=== PATIENT | female | born 1975 | race Hispanic/Latino ===

== ENCOUNTER 2018-01-30 23:00 | Emergency (ER) | payer SELFPAY ==
[2018-01-30] MEDS ORDERED: KETOROLAC 30 MG/ML INJ ONE (23:55)
[2018-01-30] MEDS ORDERED: PANTOPRAZOLE 40 MG INJ ONE (23:55)
[2018-01-30] MEDS ORDERED: PROMETHAZINE 25 MG/ML VIAL ONE (23:55)
[2018-01-30] MEDS ORDERED: NA CHLORIDE 0.9% 1,000 ML ONE (23:56)
[2018-01-31 00:15] LABS: Potassium 3.8 mEq/L (3.6-5.0)
[2018-01-31 00:16] LABS: Absolute Lymphocytes (CBC) 1.8 K/uL (0.7-4.9); Absolute Monocytes 0.5 K/uL (0.1-1.3); Absolute Neutrophil 8.8 K/uL (1.8-8.0); Basophils % 0.7 % (0-1.3); Eosinophils % 0.7 % (0-4.4); Hematocrit 44.1 % (36.0-45.0); Lymphocytes % 15.9 % (15.3-44.8); MCH 29.3 pg (27.0-35.0); MCV 87.4 fL (80-100); Monocytes % 4.6 % (3.3-12.3); RBC Red Blood Cell Count 5.04 M/uL (3.86-4.86)
[2018-01-31 00:22] LABS: Albumin 3.8 g/dL (3.2-5.5); Bilirubin Direct 0.2 mg/dL (0-0.2); Bilirubin Total 0.8 mg/dL (0.3-1.2); Protein, Total 7.5 g/dL (6.0-8.3)
--- NOTE | 2018-01-31 01:20 | EDPHYS ---
Physician Documentation [facility] Name: Kayla Dawkins Age: 42 yrs Sex: Female : 1975 Arrival Date: 01/30/2018 Time: 23:04 Bed 14 Private MD: ED Physician Mushtaq Pack HPI: 01/31 00:54 This 42 yrs old Female presents to ER via Wheelchair with complaints of snw Abdominal Pain, Nausea, Anxiety. 00:54 The patient presents with abdominal pain in the epigastric area. Onset: The snw symptoms/episode began/occurred suddenly, 3 day(s) ago, and became worse. The symptoms do not radiate. Associated signs and symptoms: Pertinent positives: nausea, vomiting, and diarrhea. The symptoms are described as achy, burning. Severity of pain: At its worst the pain was moderate. The patient has not experienced similar symptoms in the past. yes, just saw Dr. Reyes this week and got back on medications. . Just got back on Metformin, may be source of diarrhea. 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 bs1 Historical: - Allergies: 23:31 No Known Allergies; bs1 - Home Meds: 23:31 amlodipine 10 mg tab 1 tab once daily [Active]; gabapentin 300 mg Oral cap 1 cap bs1 nightly [Active]; metformin 1,000 mg Oral tab 1 tab 2 times per day [Active]; metoprolol tartrate 100 mg Oral tab 1 tab 2 times per day [Active]; losartan-hydrochlorothiazide 100-25 mg Oral tab 1 tab once daily [Active]; glipizide 5 mg Oral tab 1 tab once daily [Active]; Tramadol Oral [Active]; Cymbalta oral oral [Active]; Fish Oil [place] 3-6-9 300-1,000 mg Oral cpDR daily [Active]; - PMHx: 23:31 Diabetes - NIDDM; Hypertension; neuropathy; shoulder pain; Hepatitis; bs1 - PSHx: 23:31 None; bs1 - Immunization history:: Adult Immunizations up to date. - Social history:: Smoking status: Patient/guardian denies using tobacco. ROS: 01/31 00:52 Constitutional: Negative for fever, chills, and weight loss, Eyes: Negative for injury, snw pain, redness, and discharge, ENT: Negative for injury, pain, and discharge, Neck: Negative for injury, pain, and swelling, Cardiovascular: Negative for chest pain, palpitations, and edema, Respiratory: Negative for shortness of breath, cough, wheezing, and pleuritic chest pain, Back: Negative for injury and pain, : Negative for injury, bleeding, discharge, and swelling, MS/Extremity: Negative for injury and deformity, Skin: Negative for injury, rash, and discoloration, Neuro: Negative for headache, weakness, numbness, tingling, and seizure. Abdomen/GI: Positive for abdominal pain, nausea, vomiting, and diarrhea. Exam: 01/30 23:58 Constitutional: This is a well developed, well nourished patient who is awake, alert, snw and in no acute distress. Head/Face: Normocephalic, atraumatic. Eyes: Pupils equal round and reactive to light, extra-ocular motions intact. Lids and lashes normal. Conjunctiva and sclera are non-icteric and not injected. Cornea within normal limits. Periorbital areas with no swelling, redness, or edema. ENT: Nares patent. No nasal discharge, no septal abnormalities noted. Tympanic membranes are normal and external auditory canals are clear. Oropharynx with no redness, swelling, or masses, exudates, or evidence of obstruction, uvula midline. Mucous membranes moist. Neck: Trachea midline, no thyromegaly or masses palpated, and no cervical lymphadenopathy. Supple, full range of motion without nuchal rigidity, or vertebral point tenderness. No Meningismus. Chest/axilla: Normal chest wall appearance and motion. Nontender with no deformity. No lesions are appreciated. Cardiovascular: Regular rate and rhythm with a normal S1 and S2. No gallops, murmurs, or rubs. Normal PMI, no JVD. No pulse deficits. Respiratory: Lungs have equal breath sounds bilaterally, clear to auscultation and percussion. No rales, rhonchi or wheezes noted. No increased work of breathing, no retractions or nasal flaring. Back: No spinal tenderness. No costovertebral tenderness. Full range of motion. Skin: Warm, dry with normal turgor. Normal color with no rashes, no lesions, and no evidence of cellulitis. MS/ Extremity: Pulses equal, no cyanosis. Neurovascular intact. Full, normal range of motion. Neuro: Awake and alert, GCS 15, oriented to person, place, time, and situation. Cranial nerves II-XII grossly intact. Motor strength 5/5 in all extremities. Sensory grossly intact. Cerebellar exam normal. Normal gait. Abdomen/GI: Inspection: abdomen appears normal, Bowel sounds: normal, Palpation: moderate abdominal tenderness, in all quadrants. Vital Signs: 23:31 BP 105 / 73; Pulse 73; Resp 16 S; Temp 98.0(O); Pulse Ox 96% on R/A; Weight 95.25 kg; bs1 Height 5 ft. 6 in. (167.64 cm); Pain 9/10; 23:45 BP 110 / 78; Pulse 63; Resp 16 S; Pulse Ox 98% on R/A; bs1 01/31 01:25 BP 107 / 68; Pulse 72; Resp 15; Temp 98.0(O); Pulse Ox 100% on R/A; Pain 5/10; bs1 01/30 23:31 Body Mass Index 33.89 (95.25 kg, 167.64 cm) bs1 MDM: 01/30 23:15 Patient medically screened. snw 01/31 00:01 Data reviewed: vital signs, nurses notes. 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 snw 01:20 Counseling: I had a detailed discussion with the patient and/or guardian regarding: the snw historical points, exam findings, and any diagnostic results supporting the discharge/admit diagnosis, lab results, the need for outpatient follow up, to return to the emergency department if symptoms worsen or persist or if there are any questions or concerns that arise at home. Special discussion: Based on the patient's Hx, exam, and Dx evaluation, there is no indication for emergent surgery or inpatient Tx. It is understood by the patient/guardian that if the Sx's persist or worsen they need to return immediately for re-evaluation. Based on the history and exam findings, there is no indication for further emergent testing or inpatient evaluation. I discussed with the patient/guardian the need to see the primary care provider for further evaluation of the symptoms. 01/30 23:41 Order name: Amylase, Serum; Complete Time: 00:24 snw 01/30 23:41 Order name: Basic Metabolic Panel; Complete Time: 00:24 snw 01/30 23:41 Order name: CBC with Diff; Complete Time: 00:24 snw 01/30 23:41 Order name: Creatinine for Radiology; Complete Time: 00:17 snw 01/30 23:41 Order name: Hepatic Function; Complete Time: 00:24 snw 01/30 23:41 Order name: Lipase; Complete Time: 00:24 snw 01/30 23:41 Order name: Urine Test (obtain specimen); Complete Time: 01:06 snw 01/30 23:41 Order name: Urine Microscopic Only 01/31 01:11 Order name: Urine Dipstick--Ancillary (enter results) 01/31 01:11 Order name: Urine --Ancillary (enter results) 01/30 23:41 Order name: IV Saline Lock; Complete Time: 00:43 snw 01/30 23:41 Order name: Labs collected and sent; Complete Time: 00:43 snw 01/30 23:41 Order name: Urine Dipstick-Ancillary (obtain specimen); Complete Time: 01:06 snw Administered Medications: 00:07 Drug: Phenergan 12.5 mg Route: IVP; Site: right forearm; bs1 00:43 Follow up: Response: No adverse reaction bs1 00:08 Drug: NS 0.9% 1000 ml Route: IV; Rate: 1 bolus; Site: right forearm; bs1 01:55 Follow up: IV Status: Completed infusion bs1 00:08 Drug: TORadol 30 mg Route: IVP; Site: right forearm; bs1 00:43 Follow up: Response: No adverse reaction bs1 00:08 Drug: ProTONIX 40 mg Route: IVP; Site: right forearm; bs1 00:43 Follow up: Response: No adverse reaction bs1 Disposition: 03:43 Co-signature as Attending Physician, Mushtaq Pack MD. ma2 Disposition: 01/31/18 01:19 Discharged to Home. Impression: Vomiting, unspecified, Diarrhea, unspecified. - Condition is Stable. - Discharge Instructions: Food Choices to Help Relieve Diarrhea, Adult, Diarrhea, Clear Liquid Diet, Nausea and Vomiting, Rehydration, Adult. - Prescriptions for Bentyl 20 mg Oral Tablet - take 1 tablet by ORAL route every 6 hours As needed; 20 tablet. Zofran 4 mg Oral Tablet - take 1 tablet by ORAL route every 12 hours As needed; 20 tablet. - Work release form, Medication Reconciliation Form, Thank You Letter, Antibiotic Education, Prescription Opioid Use form. - Follow up: Private Physician; When: 2 - 3 days; Reason: Recheck today's complaints, Continuance of care, Re-evaluation by your physician. Follow up: Emergency Department; When: As needed; Reason: Worsening of condition. Signatures: Dispatcher [employer] EDMS Mayela Viera, EHSAN-C COAT PRESSER-Csnw mAarilys Power, RN RN bs1 Mushtaq Pack MD MD ma2 Corrections: (The following items were deleted from the chart) 01:55 01:19 01/31/2018 01:19 Discharged to Home. Impression: Vomiting, unspecified; Diarrhea, bs1 unspecified. Condition is Stable. Discharge Instructions: Food Choices to Help Relieve Diarrhea, Adult, Diarrhea, Clear Liquid Diet, Nausea and Vomiting, Rehydration, Adult. Prescriptions for Bentyl 20 mg Oral Tablet - take 1 tablet by ORAL route every 6 hours As needed; 20 tablet, Zofran 4 mg Oral Tablet - take 1 tablet by ORAL route every 12 hours As needed; 20 tablet. and Forms are Work release form, Medication Reconciliation Form, Thank You Letter, Antibiotic Education, Prescription Opioid Use. Follow up: Private Physician; When: 2 - 3 days; Reason: Recheck today's complaints, Continuance of care, Re-evaluation by your physician. Follow up: Emergency Department; When: As needed; Reason: Worsening of condition. snw
--- NOTE | 2018-01-31 01:20 | ER ---
Nurse's Notes [facility] Name: Kayla Dawkins Age: 42 yrs Sex: Female : 1975 Arrival Date: 01/30/2018 Time: 23:04 Bed 14 Private MD: Diagnosis: Vomiting, unspecified;Diarrhea, unspecified Presentation: 01/30 23:24 Presenting complaint: Patient states: "Dori been having abdominal pain for 2 days, just bs1 got worse, I thought it was a stomach bug, it hurts in my right/left upper abdomen and it goes down to my belly button.". Transition of care: patient was not received from another setting of care. Onset of symptoms was January 28, 2018. Initial Sepsis Screen: Does the patient meet any 2 criteria? No. Patient's initial sepsis screen is negative. Does the patient have a suspected source of infection? No. Patient's initial sepsis screen is negative. Care prior to arrival: None. 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 bs1 Historical: - Allergies: 23:31 No Known Allergies; bs1 - Home Meds: 23:31 amlodipine 10 mg tab 1 tab once daily [Active]; gabapentin 300 mg Oral cap 1 cap bs1 nightly [Active]; metformin 1,000 mg Oral tab 1 tab 2 times per day [Active]; metoprolol tartrate 100 mg Oral tab 1 tab 2 times per day [Active]; losartan-hydrochlorothiazide 100-25 mg Oral tab 1 tab once daily [Active]; glipizide 5 mg Oral tab 1 tab once daily [Active]; Tramadol Oral [Active]; Cymbalta oral oral [Active]; Fish Oil [place] 3-6-9 300-1,000 mg Oral cpDR daily [Active]; - PMHx: 23:31 Diabetes - NIDDM; Hypertension; neuropathy; shoulder pain; Hepatitis; bs1 - PSHx: 23:31 None; bs1 - Immunization history:: Adult Immunizations up to date. - Social history:: Smoking status: Patient/guardian denies using tobacco. Screenin:32 Abuse screen: Denies threats or abuse. Denies injuries from another. Nutritional bs1 screening: No deficits noted. Tuberculosis screening: No symptoms or risk factors identified. Fall Risk None identified. Assessment: 23:38 General: Appears in no apparent distress. uncomfortable, Behavior is cooperative, bs1 anxious. Pain: Complains of pain in right/left upper abdomen Pain radiates to right/left flank Pain currently is 9 out of 10 on a pain scale. Quality of pain is described as sharp. Neuro: Level of Consciousness is awake, alert, obeys commands, Oriented to person, place, time, situation, Appropriate for age Printing Bindery Assistant are equal bilaterally. Cardiovascular: Denies chest pain, shortness of breath, Heart tones S1 S2 present Capillary refill < 3 seconds Patient's skin is warm and dry. Respiratory: Airway is patent Trachea midline Respiratory effort is even, unlabored, Respiratory pattern is regular, symmetrical, Breath sounds are clear bilaterally. GI: Abdomen is round Bowel sounds present X 4 quads. Abdomen is tender to palpation in epigastric area, umbilical area, right upper quadrant and left upper quadrant Guarding noted Reports upper abdominal pain, diarrhea, nausea, Patient currently denies bloody stool, rectal bleeding, vomiting. : Denies burning with urination, inability to void, urinary frequency. EENT: No deficits noted. No signs and/or symptoms were reported regarding the EENT system. Derm: Skin is intact, Skin is pink, warm \\T\\ dry. Musculoskeletal: Circulation, motion, and sensation intact. Capillary refill < 3 seconds, Range of motion: intact in all extremities. 01/31 00:30 Reassessment: No changes from previously documented assessment. Patient and/or family bs1 updated on plan of care and expected duration. Pain level reassessed. Patient is alert, oriented x 3, equal unlabored respirations, skin warm/dry/pink. 01:51 Reassessment: Patient appears in no apparent distress at this time. Patient and/or bs1 family updated on plan of care and expected duration. Pain level reassessed. Patient is alert, oriented x 3, equal unlabored respirations, skin warm/dry/pink. Patient states feeling better. Vital Signs: 01/30 23:31 BP 105 / 73; Pulse 73; Resp 16 S; Temp 98.0(O); Pulse Ox 96% on R/A; Weight 95.25 kg; bs1 Height 5 ft. 6 in. (167.64 cm); Pain 9/10; 23:45 BP 110 / 78; Pulse 63; Resp 16 S; Pulse Ox 98% on R/A; bs1 01/31 01:25 BP 107 / 68; Pulse 72; Resp 15; Temp 98.0(O); Pulse Ox 100% on R/A; Pain 5/10; bs1 01/30 23:31 Body Mass Index 33.89 (95.25 kg, 167.64 cm) bs1 ED Course: 01/30 23:04 Patient arrived in ED. al2 23:13 [facility] snw 23:13 Mushtaq Pack MD is Attending Physician. snw 23:27 Triage completed. bs1 23:32 Patient has correct armband on for positive identification. Bed in low position. Call bs1 light in reach. Side rails up X 1. Pulse ox on. NIBP on. 23:38 Amarilys Power, RN is Primary Nurse. bs1 23:50 Inserted saline lock: 22 gauge in right forearm, using aseptic technique. bs1 23:55 Arm band placed on placed. bs1 01/31 01:52 No provider procedures requiring assistance completed. bs1 01:54 IV discontinued, bleeding controlled, No redness/swelling at site. Pressure dressing bs1 applied. Administered Medications: 00:07 Drug: Phenergan 12.5 mg Route: IVP; Site: right forearm; bs1 00:43 Follow up: Response: No adverse reaction bs1 00:08 Drug: NS 0.9% 1000 ml Route: IV; Rate: 1 bolus; Site: right forearm; bs1 01:55 Follow up: IV Status: Completed infusion bs1 00:08 Drug: TORadol 30 mg Route: IVP; Site: right forearm; bs1 00:43 Follow up: Response: No adverse reaction bs1 00:08 Drug: ProTONIX 40 mg Route: IVP; Site: right forearm; bs1 00:43 Follow up: Response: No adverse reaction bs1 Outcome: 01:19 Discharge ordered by . snw 01:53 Discharged to home ambulatory. bs1 01:53 Condition: stable 01:53 Discharge instructions given to patient, Instructed on discharge instructions, follow up and referral plans. medication usage, Demonstrated understanding of instructions, follow-up care, medications, Prescriptions given X 2. 01:55 Patient left the ED. bs1 Signatures: Mayela Viera, EDUCATION PROFESSOR-C EDUCATION PROFESSOR-Csnw Amarilys Power RN RN bs1 Patrizia Ellis Corrections: (The following items were deleted from the chart) 01:19 01/30 23:45 BP 110 / 78; Pulse 63bpm; Resp 6bpm; Pulse Ox 98% RA; bs1 bs1 01/31 01:55 01/30 20:55 Arm band placed on placed. bs1 bs1
[2018-01-31 01:41] LABS: Urine Bacteria <20 /HPF (<20); Urine Culture Reflex Order NOT NEEDED; Urine RBC NONE SEEN /HPF (NONE SEEN)
[2018-01-31 01:41] LABS: Urine Blood 2+ (NEG); Urine Glucose NEGATIVE (NEG); Urine Protein 1+ (NEG); Urine Specific Gravity >1.030 (1.005-1.030); Urine pH 5.5 (5.0-7.0)
[2018-01-31 01:59] VITALS: TEMP 98
[2018-01-31 02:02] VITALS: BP 107/68; O2SAT 100
== END 2018-01-31 01:55 | disposition home or self-care (01) ==
LOC: ER 23:00
DX: R19.7 Diarrhea, unspecified (principal); I10 Essential (primary) hypertension; E11.9 Type 2 diabetes mellitus without complications
CPT/HCPCS: 36415; 80048; 80076; 81003; 81015; 81025; 82150; 83690; 85025; 96361; 96374; 96375; 99284; C9113; J2550; J7030

== ENCOUNTER 2020-04-05 00:28 | Emergency (ER) | payer OTHER ==
[2020-04-05 02:09] LABS: Urine Blood NEGATIVE (NEG); Urine Glucose 2+ (NEG); Urine Protein 1+ (NEG); Urine Specific Gravity >1.030 (1.005-1.030)
[2020-04-05 02:13] LABS: Basophils % 1.5 % (0-1.3); Hematocrit 39.6 % (36.0-45.0); MPV 8.8 fL (7.6-11.3); RBC Red Blood Cell Count 4.83 M/uL (3.86-4.86)
[2020-04-05 02:31] LABS: ALT/SGPT 47 U/L (12-78); AST/SGOT 30 U/L (15-37); Albumin 3.7 g/dL (3.4-5.0); Alkaline Phosphatase 86 U/L (45-117); BUN Blood Urea Nitrogen 17 mg/dL (7-18); Bicarbonate 29 mmol/L (21-32); Bilirubin Direct < 0.1 mg/dL (0-0.2); Bilirubin Total 0.2 mg/dL (0.2-1.0); Glucose Level 199 mg/dL (74-106); Potassium 4.2 mmol/L (3.5-5.1); Protein, Total 8.4 g/dL (6.4-8.2); Sodium Level 138 mmol/L (136-145)
--- NOTE | 2020-04-05 06:17 | EDPHYS ---
Physician Documentation [facility] Name: Kayla Dawkins Age: 44 yrs Sex: Female : 1975 Arrival Date: 04/05/2020 Time: 00:30 Bed 8 Private MD: ED Physician Delmer Shah HPI: 04/05 01:48 This 44 yrs old Female presents to ER via Ambulatory with complaints of Mouth mh7 Swollen. 01:48 The patient presents with pain, swelling. The problem is located in the mouth. mh7 01:49 Onset: The symptoms/episode began/occurred 2 day(s) ago. Duration: The symptoms are mh7 continuous, and are unchanged since they started. Modifying factors: The symptoms are alleviated by nothing, the symptoms are aggravated by nothing. Associated signs and symptoms: Pertinent negatives: anorexia, chills, dysphagia, fever, inability to eat, nausea, redness in area, vomiting. Severity of symptoms: At their worst the symptoms were moderate, yesterday, in the emergency department the symptoms have improved, mildly. Patient that she has had mouth pain and swelling since seeing her dentist 3 days ago. States that she was told that she needed some teeth removed and was started on peniciliin.. 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 - Social history:: Smoking status: Patient/guardian denies using. ROS: 01:49 Constitutional: Negative for fever, chills, and weight loss, Eyes: Negative for injury, mh7 pain, redness, and discharge, Neck: Negative for injury, pain, and swelling, Cardiovascular: Negative for chest pain, palpitations, and edema, Respiratory: Negative for shortness of breath, cough, wheezing, and pleuritic chest pain, Abdomen/GI: Negative for abdominal pain, nausea, vomiting, diarrhea, and constipation, Back: Negative for injury and pain, : Negative for injury, bleeding, discharge, and swelling, MS/Extremity: Negative for injury and deformity, Skin: Negative for injury, rash, and discoloration, Neuro: Negative for headache, weakness, numbness, tingling, and seizure, Psych: Negative for depression, anxiety, suicide ideation, homicidal ideation, and hallucinations, Allergy/Immunology: Negative for hives, rash, and allergies, Endocrine: Negative for neck swelling, polydipsia, polyuria, polyphagia, and marked weight changes, Hematologic/Lymphatic: Negative for swollen nodes, abnormal bleeding, and unusual bruising. Exam: 01:49 Constitutional: This is a well developed, well nourished patient who is awake, alert, mh7 and in no acute distress. 01:49 Eyes: Pupils equal round and reactive to light, extra-ocular motions intact. Lids and lashes normal. Conjunctiva and sclera are non-icteric and not injected. Cornea within normal limits. Periorbital areas with no swelling, redness, or edema. 01:49 Neck: Trachea midline, no thyromegaly or masses palpated, and no cervical lymphadenopathy. Supple, full range of motion without nuchal rigidity, or vertebral point tenderness. No Meningismus. Chest/axilla: Normal chest wall appearance and motion. Nontender with no deformity. No lesions are appreciated. Cardiovascular: Regular rate and rhythm with a normal S1 and S2. No gallops, murmurs, or rubs. Normal PMI, no JVD. No pulse deficits. Respiratory: Lungs have equal breath sounds bilaterally, clear to auscultation and percussion. No rales, rhonchi or wheezes noted. No increased work of breathing, no retractions or nasal flaring. Abdomen/GI: Soft, non-tender, with normal bowel sounds. No distension or tympany. No guarding or rebound. No evidence of tenderness throughout. Back: No spinal tenderness. No costovertebral tenderness. Full range of motion. Skin: Warm, dry with normal turgor. Normal color with no rashes, no lesions, and no evidence of cellulitis. MS/ Extremity: Pulses equal, no cyanosis. Neurovascular intact. Full, normal range of motion. Neuro: Awake and alert, GCS 15, oriented to person, place, time, and situation. Cranial nerves II-XII grossly intact. Motor strength 5/5 in all extremities. Sensory grossly intact. Cerebellar exam normal. Normal gait. Psych: Awake, alert, with orientation to person, place and time. Behavior, mood, and affect are within normal limits. 01:49 Head/face: Noted is swelling, that is mild, of the left cheek, tenderness, that is mild, of the left cheek. 01:49 ENT: External ear(s): are unremarkable, Nose: is normal, Mouth: Lips: normal, Oral mucosa: normal, Gums: normal with healthy appearance, Tongue: is normal, abscess, is not appreciated, drooling, is not appreciated, Posterior pharynx: is normal, Dental exam: dental caries, that is mild, specifically in the upper left third molar (#16) and lower left first molar (#19), Voice: is normal. Vital Signs: 01:28 BP 161 / 91; Pulse 89; Resp 18; Temp 98.5; Pulse Ox 100% ; Weight 122.47 kg; Height 5 wh ft. 6 in. (167.64 cm); Pain 2/10; 02:37 BP 144 / 78; Pulse 84; Resp 18; Pulse Ox 100% on R/A; wh 04:00 BP 146 / 88; Pulse 77; Resp 18; Pulse Ox 100% on R/A; wh 06:00 BP 148 / 82; Pulse 84; Pulse Ox 100% on R/A; wh 01:28 Body Mass Index 43.58 (122.47 kg, 167.64 cm) MDM: 01:44 Patient medically screened. [facility] 06:14 Differential diagnosis: dental caries, gingivitis, dental abscess, aphthous ulcers, 7 acute necrotizing ulcerative gingivitis, gingivostomatitis. Data reviewed: vital signs, nurses notes, lab test result(s), CBC, electrolytes, radiologic studies, CT scan. Data interpreted: Pulse oximetry: on room air is 100 %. Interpretation: normal. Counseling: I had a detailed discussion with the patient and/or guardian regarding: the historical points, exam findings, and any diagnostic results supporting the discharge/admit diagnosis, the presence of at least one elevated blood pressure reading (>120/80) during this emergency department visit, lab results, radiology results, the need for outpatient follow up, to return to the emergency department if symptoms worsen or persist or if there are any questions or concerns that arise at home. Response to treatment: the patient's symptoms have markedly improved after treatment. 04/05 01:47 Order name: CBC with Diff; Complete Time: 02:41 [facility] 04/05 01:47 Order name: Basic Metabolic Panel; Complete Time: 02:41 [facility] 04/05 01:47 Order name: LFT's; Complete Time: 02:41 [facility] 04/05 02:07 Order name: Urine Dipstick--Ancillary (enter results); Complete Time: 02:41 [facility] 04/05 02:07 Order name: Urine --Ancillary (enter results); Complete Time: 02:41 [facility] 04/05 02:43 Order name: CT Maxillofacial W/cont [facility] 04/05 01:47 Order name: Urine Dipstick-Ancillary (obtain specimen); Complete Time: 02:05 [facility] 04/05 01:47 Order name: Urine Test (obtain specimen); Complete Time: 02:05 [facility] 04/05 01:47 Order name: Saline Lock; Complete Time: 02:05 [facility] Administered Medications: No medications were administered Disposition: 04/05/20 06:17 Discharged to Home. Impression: Dental caries, Facial Pain. - Condition is Stable. - Discharge Instructions: Dental Caries, [id number]. - Work release form, Medication Reconciliation Form, Thank You Letter, Antibiotic Education, Prescription Opioid Use form. - Follow up: Private Physician; When: 1 - 2 days; Reason: Worsening of condition, Recheck today's complaints, Continuance of care, Re-evaluation by your physician. Follow up: Fer Tierney DDS; When: 1 - 2 days; Reason: Worsening of condition, Recheck today's complaints. - Problem is an ongoing problem. - Symptoms have improved. Signatures: Dispatcher [employer] EDInocencio Zarate Maurice, MD MD mh7 Corrections: (The following items were deleted from the chart) 06:33 06:17 04/05/2020 06:17 Discharged to Home. Impression: Dental caries; Facial Pain. Condition is Stable. Forms are Medication Reconciliation Form, Thank You Letter, Antibiotic Education, Prescription Opioid Use. Follow up: Private Physician; When: 1 - 2 days; Reason: Worsening of condition, Recheck today's complaints, Continuance of care, Re-evaluation by your physician. Follow up: Fer Tierney; When: 1 - 2 days; Reason: Worsening of condition, Recheck today's complaints. Problem is an ongoing problem. Symptoms have improved. 7
--- NOTE | 2020-04-05 06:17 | ER ---
Nurse's Notes [facility] Name: Kayla Dawkins Age: 44 yrs Sex: Female : 1975 Arrival Date: 04/05/2020 Time: 00:30 Bed 8 Private MD: Diagnosis: Dental caries;Facial Pain Presentation: 04/05 01:28 Chief complaint: Patient states: was seen by Dentist last Wednesday and was prescribed Abx and Tramadol. Pt stated pain medication wasn't working and she felt her toungue was also swollen. Pain radiates to head and neck. Coronavirus screen: Proceed with normal triage. Patient denies a cough. Patient denies shortness of breath or difficulty breathing. Patient denies measured and/or subjective temperature greater than 100.4F prior to today's visit. Patient denies travel on a cruise ship or to a country the [facility] currently lists as an affected area. Patient reports contact with known and/or suspected case of COVID-19. Ebola Screen: Patient negative for fever greater than or equal to 101.5 degrees Fahrenheit, and additional compatible Ebola Virus Disease symptoms Patient denies exposure to infectious person. Initial Sepsis Screen: Does the patient meet any 2 criteria? No. Patient's initial sepsis screen is negative. Does the patient have a suspected source of infection? Yes: Other: Cavities. Risk Assessment: Do you want to hurt yourself or someone else? Patient reports no desire to harm self or others. Onset of symptoms was April 05, 2020. 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 - Social history:: Smoking status: Patient/guardian denies using. Screenin:34 Abuse screen: Denies threats or abuse. Denies injuries from another. Nutritional screening: No deficits noted. Tuberculosis screening: No symptoms or risk factors identified. Fall Risk None identified. Assessment: :32 General: Appears in no apparent distress. Behavior is calm, cooperative, appropriate for age. Pain: Complains of pain in mouth Pain radiates to head and neck Pain currently is 2 out of 10 on a pain scale. Quality of pain is described as aching, Pain began 2-3 days ago. Neuro: Level of Consciousness is awake, alert, obeys commands, Oriented to person, place, time, situation, Appropriate for age. Cardiovascular: Capillary refill < 3 seconds. Respiratory: Airway is patent Respiratory effort is even, unlabored, Respiratory pattern is regular, symmetrical. GI: Abdomen is flat, non-distended. : No signs and/or symptoms were reported regarding the genitourinary system. EENT: Derm: Skin is intact, is healthy with good turgor, Skin is pink, warm \T\ dry. normal. Musculoskeletal: Circulation, motion, and sensation intact. 02:37 Reassessment: Patient appears in no apparent distress at this time. No changes from previously documented assessment. Patient and/or family updated on plan of care and expected duration. Pain level reassessed. Patient is alert, oriented x 3, equal unlabored respirations, skin warm/dry/pink. 04:15 Reassessment: Patient appears in no apparent distress at this time. No changes from previously documented assessment. Patient and/or family updated on plan of care and expected duration. Pain level reassessed. Patient is alert, oriented x 3, equal unlabored respirations, skin warm/dry/pink. 06:00 Reassessment: Patient appears in no apparent distress at this time. No changes from previously documented assessment. Patient and/or family updated on plan of care and expected duration. Pain level reassessed. Patient is alert, oriented x 3, equal unlabored respirations, skin warm/dry/pink. Vital Signs: 01:28 BP 161 / 91; Pulse 89; Resp 18; Temp 98.5; Pulse Ox 100% ; Weight 122.47 kg; Height 5 ft. 6 in. (167.64 cm); Pain 2/10; 02:37 BP 144 / 78; Pulse 84; Resp 18; Pulse Ox 100% on R/A; 04:00 BP 146 / 88; Pulse 77; Resp 18; Pulse Ox 100% on R/A; 06:00 BP 148 / 82; Pulse 84; Pulse Ox 100% on R/A; 01:28 Body Mass Index 43.58 (122.47 kg, 167.64 cm) ED Course: 00:30 Patient arrived in ED. cl3 01:20 Delmer Shah MD is Attending Physician. mh7 01:21 Inocencio Awad is Primary Nurse. 01:31 Triage completed. 01:34 Arm band placed on right wrist. 01:34 Patient has correct armband on for positive identification. Bed in low position. Call light in reach. Side rails up X 1. Pulse ox on. NIBP on. 02:30 Inserted saline lock: 20 gauge in right antecubital area, using aseptic technique. 04:49 CT Maxillofacial W/cont In Process Unspecified. EDMS 06:16 Fer Tierney DDS is Referral Physician. 7 06:32 No provider procedures requiring assistance completed. IV discontinued, intact, bleeding controlled, No redness/swelling at site. Administered Medications: No medications were administered Outcome: 06:17 Discharge ordered by . 7 06:33 Discharged to home ambulatory. 06:33 Condition: stable 06:33 Discharge instructions given to patient, Instructed on discharge instructions, follow up and referral plans. POC Demonstrated understanding of instructions, follow-up care, POC 06:33 Patient left the ED. Signatures: Dispatcher [employer] EDOH Inocencio Awad Dayron Patten cl3 Delmer Shah MD MD [facility] Corrections: (The following items were deleted from the chart) 06:23 01:28 BP 161 / 91; Pulse 89bpm; Resp 18bpm; Pulse Ox 100%; Temp 98.5F; 122.47 kg; wh Height 5 ft. 6 in.; BMI: 43.5; Pain 8/10; wh 06:24 01:32 Pain: Complains of pain in mouth Pain radiates to head and neck Pain currently is 8 out of 10 on a pain scale. Quality of pain is described as aching, Pain began 2-3 days ago.
[2020-04-05 06:42] VITALS: TEMP 98.5; O2SAT 100
[2020-04-05 06:45] VITALS: BP 148/82
--- NOTE | 2020-04-05 19:28 | RAD REPORT ---
EXAM DESCRIPTION: Maxillofacial W/Cont CLINICAL HISTORY: SWELLING COMPARISON: None. TECHNIQUE: CT MAXILLOFACIAL WITH IV CONTRAST on 04/05/2020 2:43 AM CDT This exam was performed according to our departmental dose-optimization program, which includes autom ated exposure control, adjustment of the mA and/or kV according to patient size and/or use of iterati ve reconstruction technique. FINDINGS: There is no acute fracture. The paranasal sinuses are clear. Orbits and globes are unremar kable. Mastoid air cells are clear. Temporomandibular joints are intact. There are no significant sof t tissue abnormalities. IMPRESSION: No post-traumatic findings. Electronically signed by: Edy Basilio MD 04/05/2020 5:07 AM CDT Due to temporary technical issues with the PACS/Fluency reporting system, reports are being signed by the in house radiologist without review as a courtesy to ensure prompt reporting. The interpreting r adiologist is fully responsible for the content of the report.
== END 2020-04-05 06:33 | disposition home or self-care (01) ==
LOC: ER 00:28
DX: K02.9 Dental caries, unspecified (principal); R51 Headache
CPT/HCPCS: 85025; 80048; 36415; 81025; 80076; 81003; 70487; 99284; Q9967

== ENCOUNTER 2020-06-23 17:11 | Emergency (ER) | payer OTHER ==
[2012-06-10 17:57] VITALS: BP 128/74
--- OUTSIDE RECORDS SUMMARY | 2020-06-23 17:13 | XMS REPORT | Continuity of Care Document ---
:1975 Author Organization [facility] t Address [address] [place] [address] Care Team Providers Name Role Phone Frankie AKERS Attending Clinician Problems This patient has no known problems. Allergies, Adverse Reactions, Alerts This patient has no known allergies or adverse reactions. Medications This patient has no known medications. Procedures This patient has no known procedures. Encounters Start End Encounter Admission Attending Care Care Encounter Source Date/Time Date/Time Type Type Clinicians Facility Department ID 2020-06-07 2020-06-07 Telephone Frankie [facility] [id number] 00:00:00 00:00:00 Sanjuanita [facility] [id number] [facility] [id number] [facility] [id number] [facility] 2020-06-05 2020-06-05 Office Frankie [facility] [id number] 10:00:00 10:30:00 Visit Sanjuanita Cumbola [id number] Har[place] [id number] Professjose [id number] [address]al [address] Building Results This patient has no known results.
--- OUTSIDE RECORDS SUMMARY | 2020-06-23 17:14 | XMS REPORT | Summary of Care ---
:1975 Author Organization [facility] Address [address] [place] [address] Care Team Providers Name Role Phone Bere Mcclelland CLIP ON SUNGLASSES ASSEMBLER Primary Care Provider Reason for Visit Reason Comments Follow-up Diabetes Mellitus II Encounter Details Date Type Department Care Team Description 06/05/2020 Office Visit [facility] Sanjuanita David MD Uncontrolled type 2 Endocrinology- [address] [facility] diabetes mellitus with [facility] hyperglycemia (Primary [address] [place], [place] [address], [id number] [place] [address] [phone] [id number] Allergies No Known Allergiesdocumented as of this encounter (statuses as of 06/07/2020) Medications Medication Sig Dispensed Refills Start Date End Date Status clindamycin 150 mg TAKE 1 CAPSULE BY 0 02/23/2020 Active capsule MOUTH EVERY 8 HOURS FOR 10 DAYS metFORMIN 1,000 mg TAKE 1 TABLET BY 0 01/15/2020 Active tablet MOUTH TWICE DAILY WITH MEALS FOR 90 DAYS glipiZIDE 10 mg tablet TAKE 1 TABLET BY 0 01/15/2020 Active MOUTH TWICE DAILY FOR 90 DAYS ACCU-CHEK GUIDE Use as directed 100 Strip 03/05/2020 Active stripIndications: once daily Uncontrolled type 2 diabetes mellitus with hyperglycemia Lancets (ACCU-CHEK Use as directed 100 Each 03/05/2020 Active FASTCLIX LANCET DRUM) once daily MiscIndications: Uncontrolled type 2 diabetes mellitus with hyperglycemia metoprolol tartrate 50 TAKE 1 TABLET BY 0 01/15/2020 Active mg tablet MOUTH EVERY 12 HOURS WITH FOOD FOR 90 DAYS amLODIPine 10 mg tablet TAKE 1 TABLET BY 0 0 Active MOUTH ONCE DAILY FOR 90 DAYS DULoxetine 60 mg TAKE 1 CAPSULE BY 0 01/31/2020 Active capsule MOUTH ONCE DAILY A MARKUS gabapentin 300 mg TAKE 1 CAPSULE BY 0 01/31/2020 Active capsule MOUTH TWICE DAILY A MARKUS losartan 50 mg tablet TAKE 1 TABLET BY 0 01/31/2020 Active MOUTH ONCE DAILY A MARKUS traMADol 50 mg tablet TAKE 1 TABLET BY 0 02/21/2020 Active MOUTH THREE TIMES DAILY NEEDED FOR PAIN FOR 7 DAYS documented as of this encounter (statuses as of 06/07/2020) Active Problems Problem Noted Date Bacterial vaginosis 11/02/2018 Genital warts 05/30/2014 Obesity 05/11/2014 Overview: ICD10 Diagnosis Term District Claims Manager Utility Liver disease 05/11/2014 Thyroid disease 05/11/2014 Depression 05/11/2014 Type 2 diabetes mellitus without complications 014 Overview: ICD10 Diagnosis Term District Claims Manager Utility Hypertension 05/11/2014 documented as of this encounter (statuses as of 06/07/2020) Social History Tobacco Use Types Packs/Day Years Used Date Never Smoker Smokeless Tobacco: Never Used Alcohol Use Drinks/Week oz/Week Comments No Sex Assigned at Date Recorded Not on file COVID-19 Exposure Response Date Recorded In the last month, have you been in contact with No / Unsure 06/05/2020 9:59 AM CDT someone who was confirmed or suspected to have Coronavirus / COVID-19? documented as of this encounter Last Filed Vital Signs Vital Sign Reading Time Taken Comments Blood Pressure 124/78 06/05/2020 10:13 AM CDT Pulse 82 06/05/2020 10:13 AM CDT Temperature - - Respiratory Rate - - Oxygen Saturation 100% 06/05/2020 10:13 AM CDT Inhaled Oxygen Concentration - - Weight 99.7 kg (219 lb 12.8 oz) 06/05/2020 10:13 AM CDT Height 167.6 cm (5' 6") 06/05/2020 10:13 AM CDT Body Mass Index 35.48 06/05/2020 10:13 AM CDT documented in this encounter Progress Notes Sanjuanita David MD - 06/05/2020 10:00 AM CDTPatient was just found out she had positive COVID test result while she waiting to be seen in clinic A1C and vitals was done Patient will reschedule to later time (6 weeks) documented in this encounter Plan of Treatment Date Type Specialty Care Team Description 08/07/2020 Office Visit Endocrinology Diabetes & Sohail David MD Metabolism [address] [place] [address] [phone] Health Maintenance Due Date Last Done Comments EYE EXAM 1984 DTaP,Tdap,and Td Vaccines (1 1993 - Tdap) Breast Cancer Screening 2014 (MAMMOGRAM) INFLUENZA VACCINE (#1) 2020 HgA1C 12/03/2020 06/05/2020 CREATININE (SERUM) 03/05/2021 03/05/2020, 06/03/2004 FOOT EXAM 03/05/2021 03/05/2020, 03/05/2020 LDL-C 03/05/2021 03/05/2020 URINE MICROALBUMIN 03/05/2021 03/05/2020 Depression Screening 03/21/2021 03/21/2020 PAP SMEAR 10/27/2021 10/27/2018, 05/11/2014, 04/28/2004 Colorectal Cancer Screening 2024 PNEUMOCOCCAL 0-64 YEARS Aged Out No longe r eligible based COMBINED SERIES on patient's age to complete this to pic documented as of this encounter Procedures Procedure Name Priority Date/Time Associated Diagnosis Comme nts POCT HEMOGLOBIN A1C Routine 06/05/2020 Uncontrolled type 2 R esults for this TEST diabetes mellitus with proce dure are in the hyperglycemia results sectio n. documented in this encounter Results POCT HEMOGLOBIN A1C TEST (06/05/2020) Pathologist Sig nature POCT HBA1C 8.4 (A) 4 - 6 % Specimen Blood - CAPILLARY documented in this encounter Visit Diagnoses Diagnosis Uncontrolled type 2 diabetes mellitus wi th hyperglycemia - Primary documented in this encounter Insurance Payer Benefit Plan / Subscriber ID Effective Dates Phone Addre ss Type Group [facility] STAR [id number] 2020-Present Medicaid COMM PLAN - MANAGED MEDICAID documented as of this encounter Advance Directives Name Relationship Healthcare Agent Communication Relationship Evelyn Vincent Sibling Health Care Agent Evelyn Jimenez Mother Health Care Agent
--- OUTSIDE RECORDS SUMMARY | 2020-06-23 17:14 | XMS REPORT | Summary of Care ---
:1975 Author Organization [facility] Address [address] [place] [address] Care Team Providers Name Role Phone Bere Mcclelland LEAD ELECTRICIAN Primary Care Provider Reason for Visit Reason Comments Follow-up Diabetes Mellitus II Encounter Details Date Type Department Care Team Description 06/05/2020 Office Visit [facility] Sanjuanita David MD Uncontrolled type 2 Endocrinology- [address] [facility] diabetes mellitus with [facility] hyperglycemia (Primary [address] [place], [place] [address], [id number] [place] [address] [phone] Allergies No Known Allergiesdocumented as of [...] 05/30/2014 Obesity 05/11/2014 Overview: ICD10 Diagnosis Term Chemical Inspector Utility Liver disease 05/11/2014 Thyroid disease 05/11/2014 Depression 05/11/2014 Type 2 diabetes mellitus without complications 014 Overview: ICD10 Diagnosis Term Chemical Inspector Utility Hypertension 05/11/2014 documented as of this [...] Diabetes & Sohail David MD Metabolism [address] [place] [address] [phone] Health Maintenance Due Date Last Done Comments [...] Effective Dates Phone Addre ss Type Group [facility] STAR [id number] 2020-Present Medicaid COMM PLAN - MANAGED MEDICAID documented as of this encounter Advance Directives Name Relationship Healthcare Agent Communication Relationship Evelyn Vincent Sibling Health Care Agent Evelyn Jimenez Mother Health Care Agent
--- OUTSIDE RECORDS SUMMARY | 2020-06-23 17:14 | XMS REPORT | Summary of Care ---
:1975 Author Organization [facility] - Health Address [address] [place] [address] Care Team Providers Name Role Phone Bere Mcclelland RADIOLOGY TRANSPORTER Primary Care Provider Encounter Details Date Type Department Care Team Description 05/28/2020 Orders Only [facility] Doctor Unassigned, No [address] [facility] [place] [address] [address] [place] [address] Allergies No Known Allergiesdocumented as of this encounter (statuses as of 05/28/2020) Medications Medication Sig Dispensed Refills Start Date [...] as of this encounter (statuses as of 05/28/2020) Active Problems Problem Noted Date Bacterial vaginosis 11/02/2018 Genital warts 05/30/2014 Obesity 05/11/2014 Overview: ICD10 Diagnosis Term Shoe Shanker Utility Liver disease 05/11/2014 Thyroid disease 05/11/2014 Depression 05/11/2014 Type 2 diabetes mellitus without complications 014 Overview: ICD10 Diagnosis Term Shoe Shanker Utility Hypertension 05/11/2014 documented as of this encounter (statuses as of 05/28/2020) Social History Tobacco Use Types Packs/Day Years Used Date Never Smoker Smokeless Tobacco: Never Used Alcohol Use Drinks/Week oz/Week Comments No Sex Assigned at Date Recorded Not on file documented as of this encounter Last Filed Vital Signs Not on filedocumented in this encounter Plan of Treatment Date Type Specialty Care Team Description 05/28/2020 Appointment Radiology Sanjuanita David MD [address] [place] [address] [phone] 06/05/2020 Office Visit Endocrinology Diabetes & Sohail David MD Metabolism [address] [place], [place] [id number] Health Maintenance Due Date Last Done Comments HgA1C 1976 EYE EXAM 1985 DTaP,Tdap,and Td Vaccines (1 1993 - Tdap) Breast Cancer Screening 2014 (MAMMOGRAM) INFLUENZA VACCINE (#1) 2020 CREATININE (SERUM) 03/05/2021 03/05/2020, 06/03/2004 FOOT EXAM 03/05/2021 03/05/2020, 03/05/2020 LDL-C 03/05/2021 03/05/2020 URINE MICROALBUMIN 03/05/2021 03/05/2020 Depression Screening 03/21/2021 03/21/2020 PAP SMEAR 10/27/2021 10/27/2018, 05/11/2014, 04/28/2004 Colorectal Cancer Screening 2024 PNEUMOCOCCAL 0-64 YEARS Aged Out No longe r eligible based COMBINED SERIES on patient's age to complete this to [facility] documented as of this encounter Procedures Procedure Name Priority Date/Time Associated Diagnosis Comme nts ASSIGNMENT OF BENEFITS Routine 05/28/2020 4:58 PM CDT documented in this encounter Results Not on filedocumented in this encounter Insurance Payer Benefit Plan Subscriber ID Effective Phone Address Typ e / Group Dates [facility] [id number] 2020-Prese Medic aid HEALTHCARE COMM STAR nt PLAN - MANAGED MEDICAID [facility] [place] [facility]-RMP [id number] 2018-Pres [phone] Medicaid WOMEN ent [address] [place] [address] [facility]-RMP [id number] 2014-Prese [phone] Med icaid nt [address] [place] [address] documented as of this encounter Advance Directives Name Relationship Healthcare Agent Communication Relationship Evelyn Vincent Sibling Health Care Agent Evelyn Jimenez Mother Health Care Agent
--- OUTSIDE RECORDS SUMMARY | 2020-06-23 17:14 | XMS REPORT | Summary of Care ---
:1975 Author Organization [facility] Address [address] [place] [address] Care Team Providers Name Role Phone Bere Mcclelland MUSIC ENGRAVER Primary Care Provider Reason for Referral Radiology Services (Routine) Status Reason Specialty Diagnoses / Referred By Referred To Procedures Contact Contact Closed Diagnostic Diagnoses Thyroid nodule Sanjuanita David MD Radiology Procedures US HEAD NECK [address] [place] [address] Reason for Visit Radiology Services (Routine) Status Reason Specialty Diagnoses / Referred By Referred To Procedures Contact Contact Closed Diagnostic Diagnoses Thyroid nodule Sanjuanita David MD Radiology Procedures US HEAD NECK [address] [place] [address] Encounter Details Date Type Department Care Team Description 05/28/2020 Hospital Encounter [facility] Clarisa David MD Arrived [place] [facility] [address] [place] [address] [place] [address] [phone] Allergies No Known Allergiesdocumented as of this encounter (statuses as of 05/29/2020) Medications Medication Sig Dispensed Refills Start Date [...] ACCU-CHEK GUIDE Use as directed 100 Strip 1 03/05/2020 Active stripIndications: once daily Uncontrolled type 2 diabetes mellitus with hyperglycemia Lancets (ACCU-CHEK Use as directed 100 Each 1 03/05/2020 Active FASTCLIX LANCET DRUM) once daily [...] as of this encounter (statuses as of 05/29/2020) Active Problems Problem Noted Date Bacterial vaginosis 11/02/2018 Genital warts 05/30/2014 Obesity 05/11/2014 Overview: ICD10 Diagnosis Term Second Language Tutor Utility Liver disease 05/11/2014 Thyroid disease 05/11/2014 Depression 05/11/2014 Type 2 diabetes mellitus without complications 014 Overview: ICD10 Diagnosis Term Second Language Tutor Utility Hypertension 05/11/2014 documented as of this encounter (statuses as of 05/29/2020) Social History Tobacco Use Types Packs/Day Years Used Date Never Smoker Smokeless Tobacco: Never Used Alcohol Use Drinks/Week oz/Week Comments No Sex Assigned at Date Recorded Not on file COVID-19 Exposure Response Date Recorded In the last month, have you been in contact with No / Unsure 05/28/2020 4:59 PM CDT someone who was confirmed or suspected to have Coronavirus / COVID-19? documented as of this encounter Last Filed Vital Signs Not on filedocumented in this encounter Plan of Treatment Date Type Specialty Care Team Description 06/05/2020 Office Visit Endocrinology Diabetes & Sohail David MD Metabolism [address] [place] [address] [phone] Name Type Priority Associated Diagnoses Date/Ti me US HEAD NECK IMAGING Routine Thyroid nodule 05/28/2020 5 :28 PM CDT Health Maintenance Due Date Last Done Comments [...] Name Priority Date/Time Associated Diagnosis Comme nts US HEAD NECK Routine 05/28/2020 5:28 PM CDT Thyroid nodule Procedure Note - Fernanda Colón nt Results Inft User - 05/28/2020 6:01 PM CDT THYROID ULTRASOUND ACR TI-RADS EXAM: US HEAD NECK HISTORY: 44 years -old Femal e with history of thyroid nodule , status post left mid thyroid FNA in 03/16 20. TECHNIQUE: Ultrasound examin ation of the thyroid and adjacent soft tissues was performed. COMPARISON: None FINDINGS: The thyroid gland is normal in size with homogeneous echotexture and normal color Doppler flow. The isthmus measures 0.4 cm. The right thyroid lobe measu res 5.3 x 1.6 x 1.7 cm. The left thyroid lobe measur es 5.2 x 1.8 x 2.1 cm. Estimated total number of no dules >/=1cm: 3 . Number of spongiform nodules >/=2cm not described below (TR1): 0. Number of mixed cystic and s olid nodules >/=1.5cm not described below (TR2): 0 . Nodule#: 1 * Maximum size:2.1 cm. * Location: Mid - Left thyr oid lobe . * Composition: Solid/almost completely solid (2) . * Echogenicity: Isoechoic ( 1) . * Shape: Not taller than wi de (0) . * Margins: Ill defined (0) . * Echogenic foci: None (0) . * ACR TI-RADS total points: 3 * ACR TI-RADS risk category : TR 3 (3 points) * ACR TI-RADS recommendatio n: Follow-up ultrasound in 1 year Nodule#: 2 * Maximum size:1.3 * Location: Upper - Left th yroid lobe * Composition: Mixed cystic /solid (1) * Echogenicity: Hyperechoic or isoechoic (1) * Shape: Not taller than wi de (0) * Margins: Ill defined (0) * Echogenic foci: None (0) * ACR TI-RADS total points: 2 * ACR TI-RADS risk category : TR 2 (2 points) ACR TI-RADS recommendation: No further follow-up Nodule#: 3 * Maximum size:1.1cm * Location: Upper - Right t hyroid lobe * Composition: Spongiform ( 0) * Echogenicity: Hyperechoic or isoechoic (1) * Shape: Not taller than wi de (0) * Margins: Ill defined (0) * Echogenic foci: None (0) * ACR TI-RADS total points: 1 * ACR TI-RADS risk category : TR 1 (0 points) ACR TI-RADS recommendation: No further follow-up Nodule#: 4 * Maximum size:1 cm * Location: Lower - Right t hyroid lobe * Composition: Solid/almost completely solid (2) * Echogenicity: Hyperechoic or isoechoic (1) * Shape: Not taller than wi de (0) * Margins: Ill defined (0) * Echogenic foci: None (0) * ACR TI-RADS total points: 3 * ACR TI-RADS risk category : TR 3 (3 points) ACR TI-RADS recommendation: No further follow-up LYMPH NODES: A single benign -appearing lymph node noted on the right neck . IMPRESSION 1. A 2.1 cm Left thyroid lob e nodule (TR 4) meets criteria for follow-up in 1 year according to ACR TI R ADS. 2. Other nodules do not meet criteria for continued annual sonographic follow-up or biopsy. ----- ACR TI-RADS recommendations * TR5 (>/=7 points) -FNA if >/=1cm, follow-up if 0.5 -0.9 cm every year for 5 years * TR4 (4-6 points) -FNA if >/= 1.5cm, follow-up if 1 -1.4 cm in 1, 2, 3 and 5 years * TR3 (3 points)-FNA if >/= 2.5cm, follow-up if 1.5 -2.4 cm in 1, 3 and 5 years * TR2 (2 points) & TR1 (0 p oints) -No FNA or follow-up Preliminary Report Dictated by Resident: Inocencia Patel documented in this encounter Results Not on filedocumented in this encounter Visit Diagnoses Diagnosis Thyroid nodule Nontoxic uninodular goiter documented in this encounter Insurance Payer Benefit Plan / Subscriber ID Effective Dates Phone Addre ss Type Group [facility] [id number] 2020-Present Medicaid COMM PLAN - MANAGED MEDICAID documented as of this encounter Advance Directives Name Relationship Healthcare Agent Communication Relationship Evelyn Vincent Sibling Health Care Agent Evelyn Jimenez Mother Health Care Agent
--- OUTSIDE RECORDS SUMMARY | 2020-06-23 17:14 | XMS REPORT | Summary of Care ---
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 fenofibrate 145 mg Take 1 tablet by 0 05/13/2020 Active tablet mouth daily. ferrous sulfate 325 mg Take 325 mg by 0 05/14/2020 Active (65 mg iron) EC tablet mouth daily. empagliflozin Take 10 mg by 30 tablet 4 06/07/2020 A ctive (JARDIANCE) 10 mg mouth every TabIndications: morning. 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 Rx was sent documented in this encounter Plan of Treatment Date Type Specialty Care Team Description 08/07/2020 Office Visit Endocrinology Diabetes & Sohail David MD Metabolism [address] [place] [address] [phone] Health Maintenance Due Date Last Done Comments [...] to pic documented as of this encounter Results Not on filedocumented in this encounter Visit Diagnoses Diagnosis Uncontrolled type 2 diabetes mellitus wi th hyperglycemia - Primary documented in this encounter Insurance Payer Benefit Plan Subscriber ID Effective Phone Address Typ e / Group Dates [facility] [id number] 2020-Prese Medic aid HEALTHCARE COMM STAR nt PLAN - MANAGED MEDICAID [facility] [id number] 2018-Pres [phone] Medicaid WOMEN ent [address] [place] [address] [facility] [id number] 2014-Prese [phone] Med icaid nt [address] [place] [address] documented as of this encounter Advance Directives Name Relationship Healthcare Agent Communication Relationship Evelyn Vincent Sibling Health Care Agent Evelyn Jimenez Mother Health Care Agent (Golden)
[2020-06-23] MEDS ORDERED: CEPHALEXIN 250 MG CAP ONE (19:00)
[2020-06-23] MEDS ORDERED: DERMABOND SKIN ADHESIVE TOP ONE ×2 (19:32→20:15)
[2020-06-23] MEDS ORDERED: LIDOCAINE 1% MPF 5 ML VIAL ONE (20:14)
--- NOTE | 2020-06-23 20:34 | EDPHYS ---
Physician Documentation [facility] Name: Kayla Dawkins Age: 44 yrs Sex: Female : 1975 Arrival Date: 06/23/2020 Time: 17:21 Bed 13 Private MD: ED Physician Rene Vegas HPI: 06/23 18:41 This 44 yrs old Female presents to ER via Ambulatory with complaints of snw Laceration - to Finger. 18:41 Onset: The symptoms/episode began/occurred suddenly, just prior to arrival. The patient snw has not experienced similar symptoms in the past. It is unknown whether or not the patient has recently seen a physician. pt working with wire mesh on a wreath and it stuck through her left index fingernail, bleeding controlled. 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 - Social history:: Smoking status: Patient denies any tobacco usage or history of. ROS: 18:41 Constitutional: Negative for fever, chills, and weight loss, Eyes: Negative for injury, snw pain, redness, and discharge, ENT: Negative for injury, pain, and discharge, Neck: Negative for injury, pain, and swelling, Cardiovascular: Negative for chest pain, palpitations, and edema, Respiratory: Negative for shortness of breath, cough, wheezing, and pleuritic chest pain, Abdomen/GI: Negative for abdominal pain, nausea, vomiting, diarrhea, and constipation, Back: Negative for injury and pain, : Negative for injury, bleeding, discharge, and swelling, MS/Extremity: Negative for injury and deformity, Neuro: Negative for headache, weakness, numbness, tingling, and seizure. 18:41 Skin: Positive for laceration(s), of the left index fingernail. Exam: 18:40 Constitutional: This is a well developed, well nourished patient who is awake, alert, snw and in no acute distress. Head/Face: Normocephalic, atraumatic. Eyes: Pupils equal round and reactive to light, extra-ocular motions intact. Lids and lashes normal. Conjunctiva and sclera are non-icteric and not injected. Cornea within normal limits. Periorbital areas with no swelling, redness, or edema. ENT: Nares patent. No nasal discharge, no septal abnormalities noted. Tympanic membranes are normal and external auditory canals are clear. Oropharynx with no redness, swelling, or masses, exudates, or evidence of obstruction, uvula midline. Mucous membranes moist. Neck: Trachea midline, no thyromegaly or masses palpated, and no cervical lymphadenopathy. Supple, full range of motion without nuchal rigidity, or vertebral point tenderness. No Meningismus. Chest/axilla: Normal chest wall appearance and motion. Nontender with no deformity. No lesions are appreciated. Cardiovascular: Regular rate and rhythm with a normal S1 and S2. No gallops, murmurs, or rubs. Normal PMI, no JVD. No pulse deficits. Respiratory: Lungs have equal breath sounds bilaterally, clear to auscultation and percussion. No rales, rhonchi or wheezes noted. No increased work of breathing, no retractions or nasal flaring. Abdomen/GI: Soft, non-tender, with normal bowel sounds. No distension or tympany. No guarding or rebound. No evidence of tenderness throughout. Back: No spinal tenderness. No costovertebral tenderness. Full range of motion. MS/ Extremity: Pulses equal, no cyanosis. Neurovascular intact. Full, normal range of motion. Neuro: Awake and alert, GCS 15, oriented to person, place, time, and situation. Cranial nerves II-XII grossly intact. Motor strength 5/5 in all extremities. Sensory grossly intact. Cerebellar exam normal. Normal gait. Psych: Awake, alert, with orientation to person, place and time. Behavior, mood, and affect are within normal limits. 18:40 Skin: Appearance: normal except for affected area, injury, contusion(s), that are deep, of the left index fingernail, laceration(s), the wound is approximately .5 cm(s), with a depth of .25 cm(s), of the left index fingernail. Vital Signs: 17:53 BP 132 / 87; Pulse 90; Resp 17; Temp 98.3; Pulse Ox 98% ; Pain 7/10; ll1 20:00 BP 128 / 84; Pulse 88; Resp 18; Pulse Ox 99% on R/A; wh Laceration: 20:36 Wound Repair of 2cm ( 0.8in ) subcutaneous laceration to left index fingernail. Linear snw shaped.. extends through nailbed. Distal neuro/vascular/tendon intact. Anesthesia: Wound infiltrated with 4 mls of 1% lidocaine. Wound prep: Extensive cleansing with hibiclenz by nurse. Skin closed with 3 6-0 Prolene using simple sutures and sterile technique. Dressed with non-adherent dressing. Patient tolerated well. MDM: 18:34 Patient medically screened. snw 20:35 Data reviewed: vital signs, nurses notes. Data interpreted: Pulse oximetry: on room air snw is 98 %. Interpretation: normal. Counseling: I had a detailed discussion with the patient and/or guardian regarding: the historical points, exam findings, and any diagnostic results supporting the discharge/admit diagnosis, the need for outpatient follow up, to return to the emergency department if symptoms worsen or persist or if there are any questions or concerns that arise at home. Special discussion: Based on the history and exam findings, there is no indication for further emergent testing or inpatient evaluation. I discussed with the patient/guardian the need to see the primary care provider for further evaluation of the symptoms. 06/23 18:39 Order name: Hand Left 3 View XRAY snw 06/23 19:06 Order name: Dermabond; Complete Time: 19:20 snw 06/23 19:57 Order name: Suture Tray Setup; Complete Time: 20:03 snw 06/23 19:57 Order name: Dermabond; Complete Time: 20:03 snw 06/23 20:38 Order name: Splint - Finger; Complete Time: 20:51 snw Administered Medications: 18:49 Drug: Hibiclens 4 % 1 application Route: Topical; Site: wound; ll1 19:20 Follow up: Response: No adverse reaction 18:49 Not Given (UTD): Tetanus-Diphtheria Toxoid Adult 0.5 ml IM once ll1 18:50 Drug: KeFLEX 500 mg Route: PO; ll1 19:20 Follow up: Response: No adverse reaction 20:15 Drug: Lidocaine (1 %) 5 mg {Note: Administered by Provider.} Route: Infiltration; wh Disposition: 06/24 09:47 Co-signature as Attending Physician, Rene Vegas MD I agree with the assessment and kdr plan of care. Disposition: 06/23/20 20:34 Discharged to Home. Impression: Laceration without foreign body of left index finger with damage to nail. - Condition is Stable. - Discharge Instructions: Cast or Splint Care, Adult, Laceration Care, Adult, Sutured Wound Care, Nail Bed Laceration. - Prescriptions for Keflex 500 mg Oral Capsule - take 1 capsule by ORAL route every 8 hours for 10 days; 30 capsule. Diclofenac Sodium 75 mg Oral Tablet Sustained Release - take 1 tablet by ORAL route 2 times per day; 30 tablet. - Work release form, Family Work Release, Medication Reconciliation Form, Thank You Letter, Antibiotic Education, Prescription Opioid Use form. - Follow up: Emergency Department; When: As needed; Reason: Worsening of condition. Follow up: Private Physician; When: 2 - 3 days; Reason: Recheck today's complaints, Continuance of care, Re-evaluation by your physician. Signatures: Dispatcher [employer] EDMS Rene Vegas MD MD kdr Waters, Shelly, SMASH PIECER-C SMASH PIECER-Csnw Inocencio Awad Cordell Patten RN RN ll1 Corrections: (The following items were deleted from the chart) 06/23 20:48 20:34 06/23/2020 20:34 Discharged to Home. Impression: Laceration without foreign body wh of left index finger with damage to nail. Condition is Stable. Forms are Medication Reconciliation Form, Thank You Letter, Antibiotic Education, Prescription Opioid Use. Follow up: Emergency Department; When: As needed; Reason: Worsening of condition. Follow up: Private Physician; When: 2 - 3 days; Reason: Recheck today's complaints, Continuance of care, Re-evaluation by your physician. snw
--- NOTE | 2020-06-23 20:34 | ER ---
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 Laceration through nail, bleeding controlled. Coronavirus screen: Client denies travel out of the [place] in the last 14 days. Client presents with at least one sign or symptom that may indicate coronavirus-19. Standard/surgical mask placed on the client. Client reports previous positive COVID test result. Date of collection: June 02, 2020. 17:52 Method Of Arrival: Ambulatory ll1 17:53 Ebola Screen: Patient denies travel to an Ebola-affected area in the 21 days before ll1 illness onset. Complicating Factors: There are no complicating factors for this patient. Initial Sepsis Screen: Does the patient meet any 2 criteria? No. Patient's initial sepsis screen is negative. Risk Assessment: Do you want to hurt yourself or someone else? Patient reports no desire to harm self or others. Onset of symptoms was June 23, 2020. 17:53 Acuity: ESTEVAN 4 ll1 17:59 Initial Sepsis Screen: Does the patient have a suspected source of infection? Yes: Skin ll1 breakdown/wound. 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 - Social history:: Smoking status: Patient denies any tobacco usage or history of. Screenin:59 Abuse screen: Denies threats or abuse. Nutritional screening: No deficits noted. ll1 Tuberculosis screening: No symptoms or risk factors identified. Fall Risk None identified. Total Aragon Fall Scale indicates No Risk (0-24 pts). Assessment: 17:57 General: Appears uncomfortable, Behavior is calm, cooperative. Pain: Complains of pain ll1 in L hand 2nd digit Pain currently is 7 out of 10 on a pain scale. Quality of pain is described as aching, Is continuous. Neuro: No deficits noted. Derm: laceration to left hand 2nd digit. Lacerated half way through nail bed. Bleeding controlled. Reports pain. Musculoskeletal: Circulation, motion, and sensation intact. Capillary refill < 3 seconds, Reports pain in L hand 2nd digit. Injury Description: Laceration sustained to L hand 2nd digit is clean, 0.5 to 2.5 cm long, not bleeding, was sustained 30-60 minutes ago. is bleeding a small amount. 18:53 Reassessment: Patient and/or family updated on plan of care and expected duration. Pain ll1 level reassessed. Patient is alert, oriented x 3, equal unlabored respirations, skin warm/dry/pink. 19:15 Reassessment: Patient appears in no apparent distress at this time. Patient and/or wh family updated on plan of care and expected duration. Pain level reassessed. Patient is alert, oriented x 3, equal unlabored respirations, skin warm/dry/pink. 20:20 Reassessment: Patient appears in no apparent distress at this time. Patient and/or wh family updated on plan of care and expected duration. Pain level reassessed. Patient is alert, oriented x 3, equal unlabored respirations, skin warm/dry/pink. Vital Signs: 17:53 BP 132 / 87; Pulse 90; Resp 17; Temp 98.3; Pulse Ox 98% ; Pain 7/10; ll1 20:00 BP 128 / 84; Pulse 88; Resp 18; Pulse Ox 99% on R/A; ED Course: 17:21 Patient arrived in ED. ds1 17:51 Cordell Patten, CHRISTOPHER is Primary Nurse. ll1 17:53 Triage completed. ll1 17:54 Arm band placed on Patient placed in an exam room, on a stretcher. ll1 17:59 Patient has correct armband on for positive identification. Bed in low position. Call ll1 light in reach. Side rails up X 1. Cardiac monitoring not applicable on this patient. 18:01 Mayela Arguello FNP-C is [facility]. snw 18:01 Rene Vegas MD is Attending Physician. snw 20:15 Assist provider with laceration repair on left index fingernail that was 2.5 cm. or wh less using Dermabond. Set up tray. Performed by Mayela EASLEY Dressed with band aid, Patient tolerated well. finger splint applied. 20:50 Patient did not have IV access during this emergency room visit. Administered Medications: 18:49 Drug: Hibiclens 4 % 1 application Route: Topical; Site: wound; 1 19:20 Follow up: Response: No adverse reaction 18:49 Not Given (UTD): Tetanus-Diphtheria Toxoid Adult 0.5 ml IM once 1 18:50 Drug: KeFLEX 500 mg Route: PO; 1 19:20 Follow up: Response: No adverse reaction 20:15 Drug: Lidocaine (1 %) 5 mg {Note: Administered by Provider.} Route: Infiltration; Outcome: 20:34 Discharge ordered by MD. snw 20:48 Patient left the ED. 20:49 Discharged to home ambulatory, with family. 20:49 Condition: stable 20:49 Discharge instructions given to patient, family, Instructed on discharge instructions, follow up and referral plans. medication usage, wound care, POC Demonstrated understanding of instructions, follow-up care, medications, POC Prescriptions given X 2. Signatures: Mayela Arguello FNP-C ORDER WORKER-Corrine Ayala ds1 Inocencio Awad Lynsay, RN RN ll1
--- NOTE | 2020-06-24 08:53 | RAD REPORT ---
EXAM DESCRIPTION: RAD - Hand Left 3 View - 06/23/2020 6:55 pm CLINICAL HISTORY: laceration, second digit COMPARISON: None. FINDINGS: No fracture, dislocation or periosteal reaction noted. No foreign body or other soft tissu e abnormality. IMPRESSION: No foreign body. No acute bone or joint finding left hand.
== END 2020-06-23 20:48 | disposition home or self-care (01) ==
LOC: ER 17:11
PROC: 0JQK0ZZ Repair Left Hand Subcutaneous Tissue and Fascia, Open Approach (ICD-10-PCS; principal; 2020-06-23)
DX: S61.311A Laceration without foreign body of left index finger with damage to nail, initial encounter (principal); W26.8XXA Contact with other sharp object(s), not elsewhere classified, initial encounter; Y93.89 Activity, other specified; Y92.009 Unspecified place in unspecified non-institutional (private) residence as the place of occurrence of the external cause; I10 Essential (primary) hypertension
CPT/HCPCS: 99283

== ENCOUNTER 2020-11-08 17:36 | Emergency (ER) | payer OTHER ==
--- NOTE | 2020-11-08 18:19 | RAD REPORT ---
EXAM DESCRIPTION: CT - Ct Stroke Brain Wo Cont - 11/08/2020 6:11 pm CLINICAL HISTORY: Dizziness;Weakness Headache, drowsiness, CVA symptomology COMPARISON: HEAD BRAIN W O CONTRAST dated 08/05/2014; HEAD BRAIN W O CONTRAST dated 06/10/2012 TECHNIQUE: All CT scans are performed using dose optimization technique as appropriate and may inclu de automated exposure control or mA/KV adjustment according to patient size. FINDINGS: No intracranial hemorrhage, hydrocephalus or extra-axial fluid collection.No areas of brai n edema or evidence of midline shift. The paranasal sinuses and mastoids are clear. The calvarium is intact. IMPRESSION: No acute intracranial abnormality. The findings were discussed with Morgan Ramirez in the ER on 11/08/2020 at 6:15 p.m. by telephone.
[2020-11-08 18:24] LABS: Absolute Lymphocytes (CBC) 1.4 K/uL (0.7-4.9); Basophils % 0.9 % (0-1.3); Hematocrit 40.6 % (36.0-45.0); Lymphocytes % 19.9 % (15.3-44.8); MPV 8.4 fL (7.6-11.3); RBC Red Blood Cell Count 4.74 M/uL (3.86-4.86)
[2020-11-08 18:38] LABS: Protime INR 0.92
[2020-11-08] MEDS ORDERED: ALTEPLASE 100 ML IV ONE (18:38)
[2020-11-08] MEDS ORDERED: NA CHLORIDE 0.9% 100 ML ONE (18:50)
--- NOTE | 2020-11-08 18:58 | RAD REPORT ---
EXAM DESCRIPTION: RAD - Chest Single View - 11/08/2020 6:26 pm CLINICAL HISTORY: weakness left arm and left leg Chest pain. COMPARISON: Abdomen Acute Series dated 11/23/2018; Chest Single View dated 01/09/2017; CHEST SINGLE EW dated 08/12/2015; CHEST SINGLE VIEW dated 04/29/2015 FINDINGS: Portable technique limits examination quality. Calcified granuloma seen in the left lung base. The lungs are otherwise clear. The heart is normal in size. No displaced fractures. IMPRESSION: No acute intrathoracic process suspected.
--- NOTE | 2020-11-08 19:39 | ER ---
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 Coronavirus screen: At this time, the client does not indicate any symptoms associated with coronavirus-19. Ebola Screen: No symptoms or risks identified at this time. Initial Sepsis Screen: Does the patient meet any 2 criteria? No. Patient's initial sepsis screen is negative. Does the patient have a suspected source of infection? No. Patient's initial sepsis screen is negative. Risk Assessment: Do you want to hurt yourself or someone else? Patient reports no desire to harm self or others. Onset of symptoms was November 08, 2020. 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 lmp unknown mg2 Historical: - Allergies: 18:18 No Known Allergies; hb - Home Meds: 18:17 amlodipine 10 mg tab 1 tab once daily [Active]; Cymbalta Oral [Active]; Fish Oil [place] hb 3-6-9 300-1,000 mg Oral cpDR daily [Active]; gabapentin 300 mg Oral cap 1 cap nightly [Active]; glipizide 5 mg Oral tab 1 tab 2 times per day [Active]; losartan-hydrochlorothiazide 100-25 mg Oral tab 1 tab once daily [Active]; metformin 1,000 mg Oral tab 1 tab 2 times per day [Active]; metoprolol tartrate 100 mg Oral tab 1 tab 2 times per day [Active]; Tramadol Oral [Active]; - PMHx: 18:17 Hepatitis; neuropathy; Diabetes - NIDDM; Hypertension; shoulder pain; hb - PSHx: 18:17 None; hb - Immunization history:: Adult Immunizations up to date. - Social history:: Smoking status: Patient reports the use of cigarette tobacco products, smokes one-half pack cigarettes per day. Screenin:08 Abuse screen: Denies threats or abuse. Denies injuries from another. Nutritional hb screening: No deficits noted. Tuberculosis screening: No symptoms or risk factors identified. Fall Risk Total Aragon Fall Scale indicates Low Risk Score (25-44 pts). Fall prevention measures have been instituted. Side Rails Up X 2 Frequent Obs/Assesments occuring As available Patient and Family Educated on Fall Prevention Program and strategies. 18:19 Patient has been NPO before screening. The patient is alert, able to follow commands. hb The patient does not exhibit slurred or garbled speech The patient is not exhibiting difficulty speaking. The patient does not exhibit difficulty understanding words. The patient is able to swallow own secretions with no drooling or need for suction. Patient tolerated one teaspoon of water. No drooling, immediate coughing, gurgling, or clearing of the throat was noted. The patient tolerated 90mL of water. No drooling, immediate coughing, gurgling, or clearing of the throat was noted. The patient passed the bedside swallow screening. Oral medications may be given as ordered. Contact Physician for further diet orders. Assessment: 17:54 Reassessment: ARCHANA Mora at bedside to evaluate pt. hb 18:03 Reassessment: Code Stroke called, pt to CT with Carine WHITE. hb 18:14 General: Appears in no apparent distress. Behavior is calm, cooperative. Pain: Pain hb currently is 6 out of 10 on a pain scale. Neuro: Level of Consciousness is awake, alert, obeys commands, Oriented to person, place, time, situation, Reports dizziness, headache. Cardiovascular: Capillary refill < 3 seconds Patient's skin is warm and dry. Respiratory: Respiratory effort is even, unlabored, Respiratory pattern is regular, symmetrical. GI: No signs and/or symptoms were reported involving the gastrointestinal system. : No signs and/or symptoms were reported regarding the genitourinary system. EENT: No signs and/or symptoms were reported regarding the EENT system. Derm: Skin is pink, warm \\T\\ dry. Musculoskeletal: Reports left sided weakness. 18:19 Reassessment: Dr. Vegas and ARCHANA Mora at bedside. hb 18:28 Reassessment: Decision to TPA, consent signed. hb 20:20 Reassessment: report given to CHRISTOPHER Marti of [facility], patient signed the consent for mg2 transfer. 20:35 Reassessment: Patient appears in no apparent distress at this time. Patient and/or mg2 family updated on plan of care and expected duration. Pain level reassessed. Patient is alert, oriented x 3, equal unlabored respirations, skin warm/dry/pink. 21:18 Reassessment: report given to [facility], patient in good condition. ambulatory , mg2 AO x 4. Vital Signs: 17:53 BP 136 / 84; Pulse 88; Resp 16; Temp 97.8; Pulse Ox 100% on R/A; Weight 97.98 kg; hb Height 5 ft. 6 in. (167.64 cm); Pain 6/10; 18:30 BP 146 / 97; Pulse 89; Resp 16; Pulse Ox 99% on R/A; hb 20:35 BP 117 / 68; Pulse 86; Resp 18; Pulse Ox 100% on R/A; mg2 17:53 Body Mass Index 34.86 (97.98 kg, 167.64 cm) hb NIH Stroke Scale Scores: 18:05 NIHSS Score: 2 cp 20:21 NIHSS Score: 0 mg2 20:45 NIHSS Score: 0 cp ED Course: 17:53 Patient arrived in ED. hb 17:54 Carine Oropeza, CHRISTOPHER is Primary Nurse. hb 17:54 Morgan Ramirez PA is PHCP. cp 17:55 Rene Vegas MD is Attending Physician. cp 18:11 CT Stroke Brain w/o Contrast In Process Unspecified. EDMS 18:14 Initial lab(s) drawn, by or, sent to lab. dh3 18:15 Triage completed. hb 18:17 Arm band placed on. hb 18:18 Patient has correct armband on for positive identification. Bed in low position. Call light in reach. Side rails up X 1. 18:25 EKG done, by ED staff, reviewed by Morgan MAGAÑA. dh3 18:26 Stroke CXR 1 View In Process Unspecified. EDMS 18:40 Missed attempt(s): 20 gauge in right forearm. Bleeding controlled, band aid applied, dh3 catheter tip intact. 18:42 Inserted saline lock: 20 gauge in left antecubital area, using aseptic technique. dh3 18:49 initiated a transfer with Torri from the [facility]/. eb 18:54 Torri from [facility] called to decline the patient in transfer due to being at eb capacity. 19:07 initiated a transfer with Kim from [facility]. mw2 19:38 Primary Nurse role handed off by Carine Oropeza RN mw2 19:58 administrative approval given by Kim Dubose/ patient has been accepted to [address] ER/ Dr. Miranda has accepted the patient in transfer/ report to be called to [phone]. 20:01 CT Head Angio In Process Unspecified. EDMS 20:01 CT Neck Angio In Process Unspecified. EDMS 20:01 called EMS to see if they have a truck available for transfer. Jun stated "our [facility] crew is still in [place] and we are currently on a call we won't have a truck for another 2 hours.". 20:03 called [facility] to see if they had a truck available for transfer. Madeleine stated mw2 " we can have a truck to your location in about 1 hour and 30 minutes." I gave her the patient's information. 20:35 No provider procedures requiring assistance completed. Patient transferred, IV remains mg2 in place. 20:55 Lisandro Uriarte, RN is Primary Nurse. mg2 Administered Medications: 18:29 Drug: Alteplase {Co-Signature: [email or web address] (Chiqui Bhatti RN).} Route: IV Thrombolytics; Rate: hb calculated rate; 20:40 Follow up: Response: No adverse reaction mg2 20:55 Drug: Tylenol 1000 mg Route: PO; mg2 Point of Care Testing: Blood Glucose: 18:26 Blood Glucose: 234 mg/dL; hb Ranges: Outcome: 19:38 ER care complete, transfer ordered by MD. mitchell 21:19 Transferred by ground EMS to [facility], Transfer form completed. mg2 21:19 Condition: stable 21:19 Instructed on the need for transfer, Demonstrated understanding of instructions. 21:19 Patient left the ED. mg2 NIH Stroke Scale - NIH Stroke Score Date: 11/08/2020 Time: 18:05 Total Score = 2 1a. Level of Consciousness (LOC) - 0(Alert) 1b. Level of Consciousness (LOC) (Year \\T\\ Age) - 0(Both) 1c. LOC Commands (Open \\T\\ Closes Eyes/Rn Er) - 0(Both) 2. Best Gaze (Lateral Gaze Paresis) - 0(Normal) 3. Visual Field Loss - 0(No visual loss) 4. Facial Palsy - 0(Normal) 5a. Left Arm: Motor (10-second hold) - 0(No drift) 5b. Right Arm: Motor (10-second hold) - 0(No drift) 6a. Left Leg: Motor (5-second hold - always test supine) - 0(No drift) 6b. Right Leg: Motor (5-second hold - always test supine) - 0(No drift) 7. Limb Ataxia (finger/nose \\T\\ heel/rinaldi - test with eyes open) - 1(Present in one limb) 8. Sensory Loss (pinprick arms/legs/face) - 1(Mild to moderate loss) 9. Best Language: Aphasia (description/naming/reading) - 0(No aphasia) 10. Dysarthria (speech clarity - read or repeat words) - 0(Normal) 11. Extinction and Inattention (visual/tactile/auditory/spatial/personal) - 0(No abnormality) Initials: cp NIH Stroke Scale - NIH Stroke Score Date: 11/08/2020 Time: 20:21 Total Score = 0 1a. Level of Consciousness (LOC) - 0(Alert) 1b. Level of Consciousness (LOC) (Year \\T\\ Age) - 0(Both) 1c. LOC Commands (Open \\T\\ Closes Eyes/Rn Er) - 0(Both) 2. Best Gaze (Lateral Gaze Paresis) - 0(Normal) 3. Visual Field Loss - 0(No visual loss) 4. Facial Palsy - 0(Normal) 5a. Left Arm: Motor (10-second hold) - 0(No drift) 5b. Right Arm: Motor (10-second hold) - 0(No drift) 6a. Left Leg: Motor (5-second hold - always test supine) - 0(No drift) 6b. Right Leg: Motor (5-second hold - always test supine) - 0(No drift) 7. Limb Ataxia (finger/nose \\T\\ heel/rinaldi - test with eyes open) - 0(Absent) 8. Sensory Loss (pinprick arms/legs/face) - 0(Normal) 9. Best Language: Aphasia (description/naming/reading) - 0(No aphasia) 10. Dysarthria (speech clarity - read or repeat words) - 0(Normal) 11. Extinction and Inattention (visual/tactile/auditory/spatial/personal) - 0(No abnormality) Initials: mg2 NIH Stroke Scale - NIH Stroke Score Date: 11/08/2020 Time: 20:45 Total Score = 0 1a. Level of Consciousness (LOC) - 0(Alert) 1b. Level of Consciousness (LOC) (Year \\T\\ Age) - 0(Both) 1c. LOC Commands (Open \\T\\ Closes Eyes/Rn Er) - 0(Both) 2. Best Gaze (Lateral Gaze Paresis) - 0(Normal) 3. Visual Field Loss - 0(No visual loss) 4. Facial Palsy - 0(Normal) 5a. Left Arm: Motor (10-second hold) - 0(No drift) 5b. Right Arm: Motor (10-second hold) - 0(No drift) 6a. Left Leg: Motor (5-second hold - always test supine) - 0(No drift) 6b. Right Leg: Motor (5-second hold - always test supine) - 0(No drift) 7. Limb Ataxia (finger/nose \\T\\ heel/rinaldi - test with eyes open) - 0(Absent) 8. Sensory Loss (pinprick arms/legs/face) - 0(Normal) 9. Best Language: Aphasia (description/naming/reading) - 0(No aphasia) 10. Dysarthria (speech clarity - read or repeat words) - 0(Normal) 11. Extinction and Inattention (visual/tactile/auditory/spatial/personal) - 0(No abnormality) Initials: cp Signatures: Dispatcher [employer] EDKS Morgan Ramirez PA PA cp Carine Oropeza RN RN hb Herrera, Deanna 3 Rain Downing 2 Shanti Osorio Michele, RN RN [facility] Chiqui Bhatti RN [email or web address] Corrections: (The following items were deleted from the chart) 18:13 18:00 Reassessment: Pt to CT with Carine WHITE hb hb 18:45 18:30 Reassessment: Decision to TPA hb hb 18:46 18:28 Reassessment: Decision to TPA hb hb
--- NOTE | 2020-11-08 19:39 | EDPHYS ---
Physician Documentation [facility] Name: Kayla Dawkins Age: 45 yrs Sex: Female : 1975 Arrival Date: 11/08/2020 Time: 17:53 Bed 3 Private MD: ED Physician Rene Vegas HPI: 11/08 18:05 This 45 yrs old Female presents to ER via Unassigned with complaints of cp Dizziness and Left Arm and Left Leg Weakness. 18:05 The patient's problem is reported as paresthesias, in left upper extremity, in left cp side of face, weakness, in the left upper extremity, in the left lower extremity. Onset: The symptoms/episode began/occurred 1 hour(s) ago. 18:05 Duration: The episode is continuous. Context: the episode(s) was witnessed, by family, cp mother, occurred at a restaurant. Patient's baseline: Neuro: alert and fully oriented, Motor: no deficits, Ambulation: walks without assistance, Speech: normal. 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 Patient reports noticing numbness to left side of face and left arm and that left leg felt week. 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: 21:19 lmp unknown mg2 Historical: - Allergies: 18:18 No Known Allergies; hb - Home Meds: 18:17 amlodipine 10 mg tab 1 tab once daily [Active]; Cymbalta Oral [Active]; Fish Oil [place] hb 3-6-9 300-1,000 mg Oral cpDR daily [Active]; gabapentin 300 mg Oral cap 1 cap nightly [Active]; glipizide 5 mg Oral tab 1 tab 2 times per day [Active]; losartan-hydrochlorothiazide 100-25 mg Oral tab 1 tab once daily [Active]; metformin 1,000 mg Oral tab 1 tab 2 times per day [Active]; metoprolol tartrate 100 mg Oral tab 1 tab 2 times per day [Active]; Tramadol Oral [Active]; - PMHx: 18:17 Hepatitis; neuropathy; Diabetes - NIDDM; Hypertension; shoulder pain; hb - PSHx: 18:17 None; hb - Immunization history:: Adult Immunizations up to date. - Social history:: Smoking status: Patient reports the use of cigarette tobacco products, smokes one-half pack cigarettes per day. ROS: 18:10 Constitutional: Negative for body aches, chills, fever, poor PO intake. cp 18:10 Eyes: Negative for injury, pain, redness, and discharge. cp 18:10 ENT: Negative for ear pain, sore throat, difficulty swallowing, difficulty handling secretions. 18:10 Cardiovascular: Negative for chest pain, edema, palpitations. 18:10 Respiratory: Negative for cough, shortness of breath, wheezing. 18:10 Abdomen/GI: Negative for abdominal pain, nausea, vomiting, and diarrhea. 18:10 : Negative for urinary symptoms. 18:10 Skin: Negative for cellulitis, rash. 18:10 Neuro: Positive for dizziness, weakness of left arm and weakness of left leg, numbness of left side of face and numbness of left arm, Negative for altered mental status, loss of consciousness, speech changes, syncope. 18:10 All other systems are negative. Exam: 18:14 Radiologist reports: no acute findings cp 18:15 Head/Face: Normocephalic, atraumatic. cp 18:15 Constitutional: The patient appears in no acute distress, alert, awake, non-diaphoretic, non-toxic, well developed, well nourished. 18:15 Eyes: Periorbital structures: appear normal, Pupils: equal, round, and reactive to cp light and accomodation, Extraocular movements: intact throughout, Conjunctiva: normal, no exudate, no injection, Sclera: no appreciated abnormality, Lids and lashes: appear normal, bilaterally. 18:15 ENT: External ear(s): are unremarkable, Nose: is normal, Mouth: Lips: moist, Oral mucosa: pink and intact, moist, Posterior pharynx: Airway: no evidence of obstruction, patent. 18:15 Neck: ROM/movement: is normal, is supple, without pain, no range of motions limitations, no nuchal rigidity. 18:15 Chest/axilla: Inspection: normal, Palpation: is normal, no crepitus, no tenderness. 18:15 Cardiovascular: Rate: normal, Rhythm: regular, Heart sounds: murmur, not appreciated, Edema: is not appreciated, JVD: is not appreciated. 18:15 Respiratory: the patient does not display signs of respiratory distress, Respirations: normal, no use of accessory muscles, no retractions, labored breathing, is not present, Breath sounds: are clear throughout, no decreased breath sounds, no stridor, no wheezing. 18:15 Abdomen/GI: Inspection: abdomen appears normal, Bowel sounds: active, all quadrants, Palpation: abdomen is soft and non-tender, in all quadrants. 18:15 Back: pain, is absent, ROM is normal. 18:15 Neuro: Orientation: to person, place \T\ time. Mentation: is normal, Cerebellar function: Romberg testing is negative, normal finger to nose testing, mild ataxia left heel to rinaldi, Motor: moves all fours, mild weakness noted left aws architect strength, Sensation: light touch is decreased in the left arm and left side of face. 18:25 ECG was reviewed by the Attending Physician. Vital Signs: 17:53 BP 136 / 84; Pulse 88; Resp 16; Temp 97.8; Pulse Ox 100% on R/A; Weight 97.98 kg; hb Height 5 ft. 6 in. (167.64 cm); Pain 6/10; 18:30 BP 146 / 97; Pulse 89; Resp 16; Pulse Ox 99% on R/A; hb 20:35 BP 117 / 68; Pulse 86; Resp 18; Pulse Ox 100% on R/A; mg2 17:53 Body Mass Index 34.86 (97.98 kg, 167.64 cm) hb NIH Stroke Scale Scores: 18:05 NIHSS Score: 2 cp 20:21 NIHSS Score: 0 mg2 20:45 NIHSS Score: 0 cp MDM: 18:03 Patient medically screened. 18:40 Differential diagnosis: CVA, TIA, metabolic disorder, drug effects. 20:00 Physician consultation: was contacted at 19:50, regarding regarding transfer, to [facility]. patient's condition, accepting physician will be DR Pack. 20:40 Data reviewed: vital signs, nurses notes, lab test result(s), EKG, radiologic studies, CT scan, plain films. 11/08 18: Order name: CPK; Complete Time: 18:52 11/08 18:05 Order name: Basic Metabolic Panel; Complete Time: 18:52 11/08 19:35 Interpretation: Normal except: GLUC 249; GFR 58. 11/08 18:05 Order name: CBC with Diff; Complete Time: 18:52 cp 02/ 18:05 Order name: Protime (+inr); Complete Time: 18:52 cp 02/12 18:05 Order name: Ptt, Activated; Complete Time: 18:52 cp 02/12 18:36 Order name: Glucose, Ancillary Testing; Complete Time: 18:52 EDMS 02/ 18:05 Order name: CT Stroke Brain w/o Contrast; Complete Time: 18:52 cp 02 18:05 Order name: Stroke CXR 1 View; Complete Time: 19:33 cp 02 18:05 Order name: EKG; Complete Time: 18:06 cp 02 18:05 Order name: Accucheck; Complete Time: 18:20 cp 02 18:32 Order name: CT Head Angio; Complete Time: 20:38 cp 02/ 18:32 Order name: CT Neck Angio; Complete Time: 20:38 cp 02 18:05 Order name: Cardiac monitoring; Complete Time: 18:20 cp 02 18:05 Order name: EKG - Nurse/Tech; Complete Time: 18:20 cp 02 18:05 Order name: IV Saline Lock; Complete Time: 18:20 cp 02 18:05 Order name: Labs collected and sent; Complete Time: 18:20 cp 11/08 18:05 Order name: NPO; Complete Time: 18:20 cp 0212 18:05 Order name: O2 Per Protocol; Complete Time: 18:20 cp 11/08 18:05 Order name: O2 Sat Monitoring; Complete Time: 18:20 cp 11/08 18:05 Order name: Stroke Swallow Screen; Complete Time: 18:20 cp EC:25 Rate is 86 beats/min. Rhythm is regular. KS interval is normal. QRS interval is cp prolonged at 138 msec. QT interval is normal. T waves are Inverted in leads I, aVL, aVR. Interpreted by me. Reviewed by me. Administered Medications: 18:29 Drug: Alteplase {Co-Signature: [email or web address] (Chiqui Bhatti RN).} Route: IV Thrombolytics; Rate: hb calculated rate; 20:40 Follow up: Response: No adverse reaction mg2 20:55 Drug: Tylenol 1000 mg Route: PO; mg2 Point of Care Testing: Blood Glucose: 18:26 Blood Glucose: 234 mg/dL; hb Ranges: Critical Glucose Levels:Adult <50 mg/dl or >400 mg/dl <40 mg/dl or >180 mg/dl Disposition: 11/08/20 19:38 Transfer ordered to [facility]. Diagnosis are Weakness - Left Arm and Left Leg, Paresthesia of skin - Left Side of Face and Left Arm, Dizziness and giddiness. - Reason for transfer: Higher level of care. - Accepting physician is DR Pack. - Condition is Stable. - Problem is new. - Symptoms have improved. NIH Stroke Scale - NIH Stroke Score Date: 11/08/2020 Time: 18:05 Total Score = 2 1a. Level of Consciousness (LOC) - 0(Alert) 1b. Level of Consciousness (LOC) (Year \T\ Age) - 0(Both) 1c. LOC Commands (Open \T\ Closes Eyes/Ticket Taker) - 0(Both) 2. Best Gaze (Lateral Gaze Paresis) - 0(Normal) 3. Visual Field Loss - 0(No visual loss) 4. Facial Palsy - 0(Normal) 5a. Left Arm: Motor (10-second hold) - 0(No drift) 5b. Right Arm: Motor (10-second hold) - 0(No drift) 6a. Left Leg: Motor (5-second hold - always test supine) - 0(No drift) 6b. Right Leg: Motor (5-second hold - always test supine) - 0(No drift) 7. Limb Ataxia (finger/nose \T\ heel/rinaldi - test with eyes open) - 1(Present in one limb) 8. Sensory Loss (pinprick arms/legs/face) - 1(Mild to moderate loss) 9. Best Language: Aphasia (description/naming/reading) - 0(No aphasia) 10. Dysarthria (speech clarity - read or repeat words) - 0(Normal) 11. Extinction and Inattention (visual/tactile/auditory/spatial/personal) - 0(No abnormality) Initials: cp NIH Stroke Scale - NIH Stroke Score Date: 11/08/2020 Time: 20:21 Total Score = 0 1a. Level of Consciousness (LOC) - 0(Alert) 1b. Level of Consciousness (LOC) (Year \T\ Age) - 0(Both) 1c. LOC Commands (Open \T\ Closes Eyes/Ticket Taker) - 0(Both) 2. Best Gaze (Lateral Gaze Paresis) - 0(Normal) 3. Visual Field Loss - 0(No visual loss) 4. Facial Palsy - 0(Normal) 5a. Left Arm: Motor (10-second hold) - 0(No drift) 5b. Right Arm: Motor (10-second hold) - 0(No drift) 6a. Left Leg: Motor (5-second hold - always test supine) - 0(No drift) 6b. Right Leg: Motor (5-second hold - always test supine) - 0(No drift) 7. Limb Ataxia (finger/nose \T\ heel/rinaldi - test with eyes open) - 0(Absent) 8. Sensory Loss (pinprick arms/legs/face) - 0(Normal) 9. Best Language: Aphasia (description/naming/reading) - 0(No aphasia) 10. Dysarthria (speech clarity - read or repeat words) - 0(Normal) 11. Extinction and Inattention (visual/tactile/auditory/spatial/personal) - 0(No abnormality) Initials: mg2 NIH Stroke Scale - NIH Stroke Score Date: 11/08/2020 Time: 20:45 Total Score = 0 1a. Level of Consciousness (LOC) - 0(Alert) 1b. Level of Consciousness (LOC) (Year \T\ Age) - 0(Both) 1c. LOC Commands (Open \T\ Closes Eyes/Ticket Taker) - 0(Both) 2. Best Gaze (Lateral Gaze Paresis) - 0(Normal) 3. Visual Field Loss - 0(No visual loss) 4. Facial Palsy - 0(Normal) 5a. Left Arm: Motor (10-second hold) - 0(No drift) 5b. Right Arm: Motor (10-second hold) - 0(No drift) 6a. Left Leg: Motor (5-second hold - always test supine) - 0(No drift) 6b. Right Leg: Motor (5-second hold - always test supine) - 0(No drift) 7. Limb Ataxia (finger/nose \T\ heel/rinaldi - test with eyes open) - 0(Absent) 8. Sensory Loss (pinprick arms/legs/face) - 0(Normal) 9. Best Language: Aphasia (description/naming/reading) - 0(No aphasia) 10. Dysarthria (speech clarity - read or repeat words) - 0(Normal) 11. Extinction and Inattention (visual/tactile/auditory/spatial/personal) - 0(No abnormality) Initials: cp Addendum: 11/10/2020 14:35 Co-signature as Attending Physician, Rene Vegas MD I agree with the [facility] assessment and plan of care. Signatures: Dispatcher [employer] EDLA Rene Vegas MD MD [facility] Morgan Ramirez PA PA cp Carine Oropeza, RN RN Lisandro Uriarte RN RN [facility] Chiqui Bhatti RN [email or web address] Corrections: (The following items were deleted from the chart) 11/08 20:20 19:38 11/08/2020 19:38 Transfer ordered to [facility]. Diagnosis cp is Weakness - Left Arm and Left Leg. Reason for transfer: Higher level of care. Accepting physician is doctor. Condition is Stable. Problem is new. Symptoms have improved. cp 20:48 11/07 18:15 Constitutional: The patient appears in no acute distress, alert, cp awake, non-diaphoretic, non-toxic, well developed, well nourished, cp 11/08 20:48 11/07 18:15 Head/Face: Normocephalic, atraumatic. cp cp 11/08 21:19 20:20 11/08/2020 19:38 Transfer ordered to [facility]. Diagnosis mg2 is Weakness - Left Arm and Left Leg; Paresthesia of skin - Left Side of Face and Left Arm; Dizziness and giddiness. Reason for transfer: Higher level of care. Accepting physician is DR Pack. Condition is Stable. Problem is new. Symptoms have improved. cp
--- NOTE | 2020-11-08 20:11 | RAD REPORT ---
EXAM DESCRIPTION: CT - Head angio - 11/08/2020 8:01 pm CLINICAL HISTORY: WEAKNESS Headache, drowsiness COMPARISON: Ct Stroke Brain Wo Cont dated 11/08/2020; HEAD BRAIN W O CONTRAST dated 08/05/2014 TECHNIQUE: CT angiography of the head was performed with MIPs. All CT scans are performed using dose optimization technique as appropriate and may include automated exposure control or mA/KV adjustment according to patient size. FINDINGS: No evidence of aneurysm is detected. No flow-limiting stenosis or vascular malformation id entified. Antegrade flow is seen in the vertebral arteries. The vertebral arteries are left-sided dominant. The visualized dural venous sinuses are patent. IMPRESSION: No significant flow abnormality is detected.
--- NOTE | 2020-11-08 20:15 | RAD REPORT ---
EXAM DESCRIPTION: CT - Neck Angio - 11/08/2020 8:01 pm CLINICAL HISTORY: left arm weakness Headache, drowsiness, weakness COMPARISON: No comparisons TECHNIQUE: CT angiography of the neck vessels was performed with MIPs. All CT scans are performed using dose optimization technique as appropriate and may include automated exposure control or mA/KV adjustment according to patient size. FINDINGS: A left aortic arch is identified with normal three vessel configuration of the great vesse ls. No significant flow abnormality is seen of the common carotid bilaterally. No significant stenosis is identified involving the cervical segments of both internal carotid arteri es. Normal flow is seen within both vertebral arteries. IMPRESSION: No significant flow abnormality of the neck vessels is identified.
[2020-11-08] MEDS ORDERED: ACETAMINOPHEN 500 MG TAB ONE (21:10)
[2020-11-08 21:28] VITALS: TEMP 97.8
[2020-11-08 21:30] VITALS: BP 117/68; O2SAT 100
--- NOTE | 2020-11-10 07:55 | EKG ---
Test Date: 2020-11-08 Test Time: 18:19:25 Pet Care Technician: HUGO MEASUREMENT RESULTS: Intervals: Rate: 86 WA: 150 QRSD: 138 QT: 400 QTc: 478 [place]: P: 27 WA: 150 QRS: -5 T: 95 INTERPRETIVE STATEMENTS: Normal sinus rhythm Left bundle branch block Abnormal ECG Compared to ECG 01/09/2017 23:10:00 Left bundle-branch block now present Myocardial infarct finding no longer present Electronically Signed On 11-10-20 07:53:11 CNC MACHINIST 2ND SHIFT by Boby Carr
== END 2020-11-08 21:19 | disposition short-term general hospital (02) ==
LOC: ER 17:36
DX: R53.1 Weakness (principal); R20.2 Paresthesia of skin; R29.702 NIHSS score 2; I10 Essential (primary) hypertension; E11.40 Type 2 diabetes mellitus with diabetic neuropathy, unspecified
CPT/HCPCS: 92977; 93005; 85025; 80048; 36415; 82550; 85610; 82947; 85730; 70496; 70498; 70450; 71045; 99291; Q9967; J2997

== ENCOUNTER 2024-01-08 11:36 | Inpatient (IN) | payer BC, SELFPAY ==
[2024-01-08] MEDS ORDERED: CEFTRIAXONE 1000 MG/VIAL ONE (12:50)
[2024-01-08] MEDS ORDERED: KETOROLAC 30 MG/ML INJ ONE (12:50)
[2024-01-08] MEDS ORDERED: ACETAMINOPHEN 500 MG TAB ONE ×2 (12:50→18:28)
[2024-01-08] MEDS ORDERED: NA CHLORIDE 0.9% 50 ML ONE (12:50)
[2024-01-08] MEDS ORDERED: NA CHLORIDE 0.9% 1,000 ML ONE ×2 (12:51→18:28)
[2024-01-08 13:02] LABS: Absolute Lymphocytes (CBC) 0.4 K/uL (0.7-4.9); Absolute Monocytes 0.3 K/uL (0.1-1.3); Absolute Neutrophil 5.9 K/uL (1.8-8.0); Basophils % 0.5 % (0-1.3); Eosinophils % 0.2 % (0-4.4); Hematocrit 32.9 % (36.0-45.0); Hemoglobin 10.5 g/dL (12.0-15.0); Lymphocytes % 5.7 % (15.3-44.8); MCH 24.4 pg (27.0-35.0); MCHC 31.9 g/dL (32.0-36.0); MCV 76.6 fL (80-100); MPV 8.7 fL (7.6-11.3); Monocytes % 4.7 % (3.3-12.3); Neutrophils % 88.9 % (41.7-73.7); Platelets 194 thou/uL (152-406); Red Cell Distribution Width 16.9 % (12.1-15.2)
[2024-01-08 13:09] LABS: PT Prothrombin Time 12.6 SECONDS (9.5-12.5); PTT, Activated Partial Thromb 30.5 SECONDS (24.3-36.9); Protime INR 1.15
[2024-01-08 13:21] LABS: Albumin/Globulin Ratio 0.7 (1.1-1.8); Anion Gap 12.8 mEq/L (5.0-15.0); Bilirubin Total 0.5 mg/dL (0.2-1.0); Globulin 4.3 g/dL (2.3-3.5); Potassium 3.8 mEq/L (3.5-5.1); Protein, Total 7.3 g/dL (6.4-8.2)
[2024-01-08 13:22] LABS: Blood Morphology Comment NOT SEEN (NOT SEEN); Platelet Estimate ADEQ; White Blood Cell Scan OK (OK)
--- NOTE | 2024-01-08 14:11 | EDPHYS ---
Physician Documentation [facility] Name: Kayla Vincent Age: 48 yrs Sex: Female : 1975 Arrival Date: 01/08/2024 Time: 11:36 Bed 14 Private MD: ED Physician Roman Bonilla HPI: 01/07 15:46 This 48 yrs old Female presents to ER via Ambulatory with complaints of rt Nausea, Urinary Problem. 15:46 Patient was seen in the ED about 7 hours ago, diagnosed with UTI. At that time, rt admission was offered to the patient, she declined wishing to go home. Patient states that her symptoms have worsened with dysuria, fever, chills, generalized bodyaches. Denies other acute complaints at this time, symptoms are moderate in severity, no other aggravating or alleviating factors.. Historical: - Allergies: 12:00 No Known Allergies; hb - PMHx: 12:00 Diabetes - NIDDM; Hepatitis; Hypertension; neuropathy; shoulder pain; hb - PSHx: 12:00 hysterectomy; left hand; hb - Immunization history:: Adult Immunizations up to date. - Infectious Disease History:: Denies. - Social history:: Smoking status: Patient denies any tobacco usage or history of. - Family history:: not pertinent. ROS: 15:46 Cardiovascular: Negative for chest pain, palpitations, and edema, Respiratory: Negative rt for shortness of breath, cough, wheezing, and pleuritic chest pain, Abdomen/GI: Negative for abdominal pain, nausea, vomiting, diarrhea, and constipation, Skin: Negative for injury, rash, and discoloration, Neuro: Negative for headache, weakness, numbness, tingling, and seizure, 15:46 Constitutional: Positive for body aches, chills, fever, 15:46 : Positive for urinary symptoms, burning with urination, Exam: 15:46 Constitutional: This is a well developed, well nourished patient who is awake, alert, rt and in no acute distress. Head/Face: Normocephalic, atraumatic. Chest/axilla: Normal chest wall appearance and motion. Nontender with no deformity. No lesions are appreciated. Cardiovascular: Regular rate and rhythm with a normal S1 and S2. No gallops, murmurs, or rubs. Normal PMI, no JVD. No pulse deficits. Respiratory: Lungs have equal breath sounds bilaterally, clear to auscultation and percussion. No rales, rhonchi or wheezes noted. No increased work of breathing, no retractions or nasal flaring. Abdomen/GI: Soft, non-tender, with normal bowel sounds. No distension or tympany. No guarding or rebound. No evidence of tenderness throughout. Skin: Warm, dry with normal turgor. Normal color with no rashes, no lesions, and no evidence of cellulitis. MS/ Extremity: Pulses equal, no cyanosis. Neurovascular intact. Full, normal range of motion. Neuro: Awake and alert, GCS 15, oriented to person, place, time, and situation. Cranial nerves II-XII grossly intact. Motor strength 5/5 in all extremities. Sensory grossly intact. Cerebellar exam normal. Normal gait. 15:46 ECG was reviewed by the Attending Physician. Vital Signs: 11:59 BP 125 / 66; Pulse 111; Resp 20; Temp 99.9(TE); Pulse Ox 99% on R/A; Weight 99.79 kg; hb Height 5 ft. 6 in. ; Pain 8/10; 12:54 BP 114 / 68; Pulse 94; Resp 19; Pulse Ox 96% on R/A; me1 13:30 BP 107 / 72; Pulse 90; Resp 24; Pulse Ox 97% on R/A; me1 15:05 BP 111 / 58; Pulse 85; Resp 18; Pulse Ox 99% ; me1 11:59 Body Mass Index 35.51 (99.79 kg, 167.64 cm) hb 11:59 Pain Scale: Adult hb MDM: 12:05 Patient medically screened. rt 15:50 Differential diagnosis: Taras, UTI, sepsis. Data reviewed: vital signs, nurses notes, rt lab test result(s), EKG. Consideration of Admission/Observation Patient was admitted/placed on observation. Management of patient was discussed with the following: Hospitalist: Agrees to admit. Care significantly affected by the following chronic conditions: Diabetes. Counseling: I had a detailed discussion with the patient and/or guardian regarding the historical points, exam findings, and any diagnostic results supporting the discharge/admit diagnosis, lab results, the need for further work-up and treatment in the hospital. Response to treatment: the patient's symptoms have mildly improved after treatment. 04/13 12:12 Order name: Blood Culture Adult (2) rt 01/07 12:12 Order name: CBC with Diff; Complete Time: 13:34 rt 01/07 12:12 Order name: CMP; Complete Time: 13:21 rt 01/07 12:12 Order name: Lactate w/ 2H reflex if indic.; Complete Time: 13:21 rt 01/07 12:12 Order name: Protime (+inr); Complete Time: 13:21 rt 01/07 12:12 Order name: Ptt, Activated; Complete Time: 13:21 rt 01/07 13:17 Order name: Glucose, Ancillary Testing; Complete Time: 13:21 EDMS 01/07 13:22 Order name: CBC Smear Scan; Complete Time: 13:34 EDMS 01/07 18:37 Order name: Glucose, Ancillary Testing; Complete Time: 18:43 EDMS 01/07 14:07 Order name: CT Abd/Pelvis - IV Contrast Only; Complete Time: 15:31 la1 01/07 12:12 Order name: EKG; Complete Time: 12:12 rt 01/07 12:12 Order name: Accucheck; Complete Time: 14:59 rt 01/07 12:12 Order name: Cardiac monitoring; Complete Time: 13:05 rt 01/07 12:12 Order name: EKG - Nurse/Tech; Complete Time: 13:05 rt 01/07 12:12 Order name: IV Saline Lock - Large Bore; Complete Time: 13:05 rt 01/07 12:12 Order name: Labs collected and sent; Complete Time: 13:05 rt 01/07 12:12 Order name: O2 Per Protocol; Complete Time: 13:05 rt 01/07 12:12 Order name: O2 Sat Monitoring; Complete Time: 13:05 rt 01/07 12:12 Order name: Vital Signs; Complete Time: 13:05 rt EC:46 Rate is 102 beats/min. Rhythm is regular, Sinus tachycardia with No ectopy, Nonspecific rt idioventricular block. QRS [place] is Normal. TN interval is normal. QRS interval is normal. QT interval is normal. No Q waves. Administered Medications: 13:02 Drug: Acetaminophen PO 1000 mg PO once Route: PO; me1 15:18 Follow up: Response: No adverse reaction; Temperature is decreased me1 13:03 Drug: Ketorolac IVP 15 mg IVP once Route: IVP; Site: right antecubital; me1 15:17 Follow up: Response: No adverse reaction; Pain is decreased me1 13:03 Drug: NS 0.9% IV 1000 ml IV at 1 bolus Per protocol; 1000 mL bolus Route: IV; Rate: 1 me1 bolus; Site: right antecubital; 15:18 Follow up: Response: No adverse reaction; IV Status: Completed infusion; IV Intake: me1 1000ml 13:05 Drug: Rocephin - Rocephin (cefTRIAXone) IVPB 1 grams IVPB once over 30 mins; (mix in 50 me1 mL NS) Route: IVPB; Infused Over: 30 mins; Site: right antecubital; 13:35 Follow up: Response: No adverse reaction; IV Status: Completed infusion; IV Intake: [id number] Disposition Summary: 01/08/24 14:11 Hospitalization Ordered Notes: Hospitalization Status: Inpatient Admission rt Provider: Teja Ocampo rt [facility] rt Condition: Stable rt Problem: new rt Symptoms: have improved rt Bed/Room Type: Standard rt Room Assignment: 207(01/08/24 23:06) mc5 Diagnosis - UTI/ Urinary tract infection, site not specified rt - Sepsis, unspecified organism rt Forms: - Medication Reconciliation Form rt - SBAR form rt - Leadership Thank You Letter rt Signatures: Dispatcher [employer] EDCarine Douglas RN RN Roman Bonilla MD MD rt Sruthi Tatum RN RN ct1 Josefa Hurt mc5 Corrections: (The following items were deleted from the chart) 12:12 12:12 BLOOD CULTURE*+BA.LAB.BRZ ordered. EDMS EDMS 12:12 12:12 CBC+H.LAB.BRZ ordered. EDMS EDMS 12:12 12:12 COMPREHENSIVE METABOLIC PANEL+C.LAB.BRZ ordered. EDMS EDMS 12:12 12:12 LACTATE+C.LAB.BRZ ordered. EDMS EDMS 12:12 12:12 PROTIME (+INR)+COAG.LAB.BRZ ordered. EDMS EDMS 12:12 12:12 PTT, ACTIVATED+COAG.LAB.BRZ ordered. EDMS EDMS 14:07 14:07 Abdomen Pelvis W Con+CT.RAD.BRZ ordered. EDMS EDMS 22:03 14:11 rt mc5 22:17 22:03 211 mc5 mc5 23:02 22:17 207 mc5 mc5 23:06 23:02 206 mc5 mc5
--- NOTE | 2024-01-08 14:11 | ER ---
Nurse's Notes [facility] Name: Kayla Vincent Age: 48 yrs Sex: Female : 1975 Arrival Date: 01/08/2024 Time: 11:36 Bed 14 Private MD: Diagnosis: UTI/ Urinary tract infection, site not specified;Sepsis, unspecified organism Presentation: 01/07 11:59 Chief complaint: Difficulty urinating, pain with urination, body aches, nausea, chills, hb and malaise x 2 days. Coronavirus screen: At this time, the client does not indicate any symptoms associated with coronavirus-19. Ebola Screen: No symptoms or risks identified at this time. Initial Sepsis Screen: Does the patient meet any 2 criteria? HR > 90 bpm. No. Patient's initial sepsis screen is negative. Does the patient have a suspected source of infection? No. Patient's initial sepsis screen is negative. Risk Assessment: Do you want to hurt yourself or someone else? Patient reports no desire to harm self or others. Onset of symptoms was January 07, 2024. 11:59 Method Of Arrival: Ambulatory hb 11:59 Acuity: ESTEVAN 3 hb Triage Assessment: 12:00 General: Appears in no apparent distress. ill, Behavior is calm, cooperative. Pain: hb Pain currently is 8 out of 10 on a pain scale. Neuro: Level of Consciousness is awake, alert, obeys commands, Oriented to person, place, time, situation. Cardiovascular: Patient's skin is warm and dry. Respiratory: Respiratory effort is even, unlabored, Respiratory pattern is regular, symmetrical. : Reports burning with urination, urinary frequency. Historical: - Allergies: 12:00 No Known Allergies; hb - PMHx: 12:00 Diabetes - NIDDM; Hepatitis; Hypertension; neuropathy; shoulder pain; hb - PSHx: 12:00 hysterectomy; left hand; hb - Immunization history:: Adult Immunizations up to date. - Infectious Disease History:: Denies. - Social history:: Smoking status: Patient denies any tobacco usage or history of. - Family history:: not pertinent. Screenin:02 [facility] ED Fall Risk Assessment (Adult) History of falling in the last 3 months, me1 including since admission No falls in past 3 months (0 pts) Confusion or Disorientation No (0 pts) Intoxicated or Sedated No (0 pts) Impaired Gait No (0 pts) Mobility Assist Device Used No (0 pt) Altered Elimination No (0 pt) Score/Fall Risk Level 0 - 2 = Low Risk Maintained a safe environment, Provided non-skid footwear, Hourly rounding (assess needs \T\ fall precautionary measures) done. Abuse screen: Denies threats or abuse. Nutritional screening: No deficits noted. Tuberculosis screening: No symptoms or risk factors identified. Assessment: 12:02 General: Appears uncomfortable, well groomed, well developed, well nourished, Behavior me1 is calm, cooperative, appropriate for age, Reports difficulty voiding, pain with urination, body aches, nausea, chills, malaise x 2 days. Pain: Complains of pain in generalized Pain does not radiate. Pain currently is 3 out of 10 on a pain scale. Quality of pain is described as aching, Pain began gradually, 2-3 days ago. Is continuous. Neuro: Level of Consciousness is awake, alert, obeys commands, Oriented to person, place, time, situation, Appropriate for age. Cardiovascular: Capillary refill < 3 seconds Patient's skin is warm and dry. Respiratory: Airway is patent Respiratory effort is even, unlabored, Respiratory pattern is regular, symmetrical. GI: No signs and/or symptoms were reported involving the gastrointestinal system. : Reports pain with urination, urinary frequency. EENT: No signs and/or symptoms were reported regarding the EENT system. Derm: Skin is intact, is healthy with good turgor, Skin is pink, warm \T\ dry. Musculoskeletal: No deficits noted. 13:00 Reassessment: No changes from previously documented assessment. Patient and/or family me1 updated on plan of care and expected duration. Pain level reassessed. Patient is alert, oriented x 3, equal unlabored respirations, skin warm/dry/pink. 14:00 Reassessment: Patient and/or family updated on plan of care and expected duration. Pain me1 level reassessed. Patient is alert, oriented x 3, equal unlabored respirations, skin warm/dry/pink. Patient states feeling better. 15:00 Reassessment: Patient and/or family updated on plan of care and expected duration. Pain me1 level reassessed. Patient is alert, oriented x 3, equal unlabored respirations, skin warm/dry/pink. 15:55 Reassessment: Patient and/or family updated on plan of care and expected duration. Pain me1 level reassessed. Patient is alert, oriented x 3, equal unlabored respirations, skin warm/dry/pink. Patient denies pain at this time. Vital Signs: 11:59 BP 125 / 66; Pulse 111; Resp 20; Temp 99.9(TE); Pulse Ox 99% on R/A; Weight 99.79 kg; hb Height 5 ft. 6 in. ; Pain 8/10; 12:54 BP 114 / 68; Pulse 94; Resp 19; Pulse Ox 96% on R/A; me1 13:30 BP 107 / 72; Pulse 90; Resp 24; Pulse Ox 97% on R/A; me1 15:05 BP 111 / 58; Pulse 85; Resp 18; Pulse Ox 99% ; me1 11:59 Body Mass Index 35.51 (99.79 kg, 167.64 cm) hb 11:59 Pain Scale: Adult hb ED Course: 11:39 Patient arrived in ED. mg5 11:41 Roman Bonilla MD is Attending Physician. rt 12:00 Triage completed. hb 12:01 Arm band placed on. hb 12:02 Patient has correct armband on for positive identification. Bed in low position. Call me1 light in reach. Side rails up X2. Provided Education on: POC. Verbalized understanding. . 12:02 No provider procedures requiring assistance completed. me1 12:14 Sruthi Tatum, RN is Primary Nurse. me1 12:45 Initial lab(s) drawn, by ED staff, sent to lab. First set of blood cultures drawn by ED me1 staff, Second set of blood cultures drawn by ED staff, EKG done, by ED staff, reviewed by Roman Bonilla MD. 13:03 Client placed on continuous cardiac and pulse oximetry monitoring. NIBP monitoring me1 applied. personnel monitor on. Pulse ox on. NIBP on. 13:03 Inserted saline lock: 22 gauge in right antecubital area, using aseptic technique. me1 13:05 Blood Culture Adult (2) Sent. me1 13:05 CMP Sent. me1 13:05 Lactate w/ 2H reflex if indic. Sent. me1 13:05 Protime (+inr) Sent. me1 13:05 Ptt, Activated Sent. me1 14:10 Teja Ocampo MD is Hospitalizing Provider. rt 14:33 Inserted saline lock: 22 gauge in left antecubital area, using aseptic technique. me1 14:53 CT Abd/Pelvis - IV Contrast Only In Process Unspecified. EDMS 22:54 Patient admitted, IV remains in place. me1 Administered Medications: 13:02 Drug: Acetaminophen PO 1000 mg PO once Route: PO; me1 15:18 Follow up: Response: No adverse reaction; Temperature is decreased me1 13:03 Drug: Ketorolac IVP 15 mg IVP once Route: IVP; Site: right antecubital; me1 15:17 Follow up: Response: No adverse reaction; Pain is decreased me1 13:03 Drug: NS 0.9% IV 1000 ml IV at 1 bolus Per protocol; 1000 mL bolus Route: IV; Rate: 1 me1 bolus; Site: right antecubital; 15:18 Follow up: Response: No adverse reaction; IV Status: Completed infusion; IV Intake: me1 1000ml 13:05 Drug: Rocephin - Rocephin (cefTRIAXone) IVPB 1 grams IVPB once over 30 mins; (mix in 50 me1 mL NS) Route: IVPB; Infused Over: 30 mins; Site: right antecubital; 13:35 Follow up: Response: No adverse reaction; IV Status: Completed infusion; IV Intake: 72mdng2 Medication: 12:02 VIS not applicable for this client. me1 Intake: 13:35 IV: 50ml; Total: 50ml. me1 15:18 IV: 1000ml; Total: 1050ml. me1 Outcome: 14:11 Decision to Hospitalize by Provider. rt 22:22 Admitted to Med/surg accompanied by tech, via wheelchair, room 207, with chart, Report me1 called to faxed at 22:22 22:22 Instructed on the need for admit, 22:53 Condition: stable me1 23:10 Patient left the ED. me1 Addendum: 01/11/2024 08:37 Addendum: Culture Results: Other faxed culture report to 2nd floor,pt is currently in b d rm 207. called laborer cook house (Dony), he will let the 2nd floor know. Signatures: Dispatcher [employer] EDMS Claire Ramirez Heather, RN RN hb Roman Bonilla MD MD rt Sruthi Tatum RN RN me1 Kat Lassiter mg5 Corrections: (The following items were deleted from the chart) 01/07 15:17 15:05 Pulse 85bpm; Resp 18bpm; Pulse Ox 99%; me1 me1
--- NOTE | 2024-01-08 15:27 | RAD REPORT ---
EXAM DESCRIPTION: CT - Abdomen Pelvis W Contrast - 01/08/2024 2:51 pm CLINICAL HISTORY: Abdominal pain COMPARISON: 2019 TECHNIQUE: Computed axial tomography of the abdomen pelvis was obtained. 100 cc Isovue-300 was admin istered intravenously. Oral contrast was not requested which limits evaluation of bowel and appendix All CT scans are performed using dose optimization technique as appropriate and may include automated exposure control or mA/KV adjustment according to patient size. FINDINGS: Mild fatty liver Mild splenomegaly Pancreas, adrenal and kidneys appear unremarkable. Mild stranding within the right perirenal fat is n onspecific Mild bladder wall thickening. Normal appendix Small to moderate umbilical hernia No adnexal mass There is no evidence of diverticulitis. IMPRESSION: Mild bladder wall thickening may indicate inflammation Mild splenomegaly
--- NOTE | 2024-01-08 16:04 | P.HP ---
Certification for Inpatient Patient admitted to: Inpatient With expected LOS: >2 Midnights Patient will require the following post-hospital care: None Practitioner: I am a practitioner with admitting privileges, knowledge of patient current condition, hospital course, and medical plan of care. Services: Services provided to patient in accordance with Admission requirements found in Title 42 Section 412.3 of the Code of Federal Regulations Patient History Date of Service: 01/08/24 Reason for admission: Sepsis, UTI History of Present Illness: 48-year-old female presents emergency department with chief complaint of nausea, subjective fever, chills, dysuria for the past 24 hours. She was evaluated in the emergency department her labs were significant for hyperglycemia with glucose of 352 hemoglobin 10.5 hematocrit 32.9 SIRS criteria present including tachycardia, tachypnea and source of infection confirmed with urinary tract infection meeting criteria for sepsis. Blood cultures were obtained lactate was 1.8 CT abdomen pelvis IV contrast was performed which showed bladder wall thickening consistent with cystitis. Patient will be admitted for further evaluation and management of sepsis, UTI. Allergies No Known Allergies Allergy (Verified 01/10/17 04:47) Home Medications: Amlodipine [Norvasc] 10 mg PO DAILY 01/10/17 Gabapentin [Gralise] 300 mg PO BID 01/10/17 Glipizide [Glipizide ER] 5 mg PO BID 01/10/17 Losartan/Hydrochlorothiazide [Losartan-Hctz 100-25 mg Tab] 1 tab PO DAILY 01/10/17 Metformin HCl [Glucophage] 1,000 mg PO BID 01/10/17 Metoprolol Tartrate 100 mg PO BID 01/10/17 Duloxetine [Cymbalta *] 20 mg PO BID 11/23/18 Tramadol HCl [Ultram] 50 mg PO Q8H PRN 11/23/18 - Past Medical/Surgical History Diabetic: Yes -: Hypertension -: Diabetes -: vertigo -: non-hepatitis a, b or c -: D & C -: Mass on the left side Thyroid biopsy Psychosocial/ Personal History: 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, 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 with 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 - Family History Father -: Hypertension Mother -: Hypertension, Diabetes, Stroke, Liver disease - Social History Alcohol use: No CD- Drugs: No Caffeine use: No Place of Residence: Home Review of Systems General: Fever, Chills, Weakness, Malaise Gastrointestinal: Nausea Genitourinary: Dysuria Physical Examination - Physical Exam General: Alert, In no apparent distress, Oriented x3 HEENT: Atraumatic, PERRLA, EOMI Neck: Supple, 2+ carotid pulse no bruit Respiratory: Clear to auscultation bilaterally, Normal air movement Cardiovascular: Regular rate/rhythm, Normal S1 S2 Gastrointestinal: Normal bowel sounds Musculoskeletal: No tenderness Integumentary: No rashes Neurological: Normal speech, Normal strength at 5/5 x4 extr, Normal tone - Studies Laboratory Data (last 24 hrs) 01/08/24 01/08/24 01/08/24 12:30 12:30 12:30 WBC 6.60 Hgb 10.5 L Hct 32.9 L Plt Count 194 PT 12.6 H INR 1.15 APTT 30.5 Sodium 131 L Potassium 3.8 BUN 17 Creatinine 0.74 Glucose 352 H Total Bilirubin 0.5 AST 20 ALT 31 Alkaline Phosphatase 68 Assessment and Plan - Plan Assessment: Sepsis secondary to UTI Diabetes mellitus type [id number] hyperglycemia Hypertension Hyperlipidemia Plan: Sepsis secondary to UTI Blood and urine cultures obtained in EDfollow Lactate less than 2, no hypotension Continue Rocephin, await cultures Diabetes mellitus type [id number] hyperglycemia ACHS Accu-Chek, sliding scale insulin A1c in the morning Reports she was started on insulin but cannot afford it so takes metformin/glipizide at home Hypertension Hyperlipidemia Continue home medications DVT PPX: Left Code status: Full Discharge Plan: Home Plan to discharge in: 48 Hours - Advance Directives Does patient have a Living Will: No Does patient have a Durable POA for Healthcare: No - Code Status/Comfort Care Code Status Assessed: Yes (Full code) Critical Care: No Time Spent Managing Pts Care (In Minutes): 70
[2024-01-08] MEDS: NA CHLORIDE 0.9% 1,000 ML IV SCH (18:05)
[2024-01-08] MEDS: INSULIN REGULAR (HUMAN) 100 UNIT/ML SQ SCH (18:05)
[2024-01-08] MEDS ORDERED: INSULIN REGULAR (HUMAN) 100 UNIT/ML ONE (18:28)
[2024-01-08] MEDS: ACETAMINOPHEN 500 MG TAB PO PRN (18:49)
[2024-01-08] MEDS: ONDANSETRON 4 MG/2 ML VIAL IV PRN (19:57)
[2024-01-08] MEDS ORDERED: ONDANSETRON 4 MG/2 ML VIAL ONE (19:58)
[2024-01-09] MEDS: TRAMADOL HCL 50 MG TAB PO PRN (03:19)
[2024-01-09 04:28] LABS: Absolute Lymphocytes (CBC) 0.5 K/uL (0.7-4.9); Absolute Monocytes 0.3 K/uL (0.1-1.3); Absolute Neutrophil 3.2 K/uL (1.8-8.0); Basophils % 0.6 % (0-1.3); Eosinophils % 0.2 % (0-4.4); Hematocrit 28.9 % (36.0-45.0); Hemoglobin 9.4 g/dL (12.0-15.0); Lymphocytes % 11.9 % (15.3-44.8); MCH 24.8 pg (27.0-35.0); MCHC 32.7 g/dL (32.0-36.0); MCV 75.9 fL (80-100); MPV 8.6 fL (7.6-11.3); Monocytes % 6.9 % (3.3-12.3); Neutrophils % 80.4 % (41.7-73.7); Nucleated Red Blood Cells % 0.1 % (0-0); Platelets 163 thou/uL (152-406)
[2024-01-09 05:06] LABS: Albumin 2.7 g/dL (3.4-5.0); Albumin/Globulin Ratio 0.7 (1.1-1.8); Anion Gap 8.4 mEq/L (5.0-15.0); Bilirubin Total 0.4 mg/dL (0.2-1.0); Globulin 3.9 g/dL (2.3-3.5); Magnesium 1.3 mg/dL (1.6-2.4); Potassium 3.4 mEq/L (3.5-5.1); Protein, Total 6.6 g/dL (6.4-8.2); Thyroid Stimulating Hormone 1.24 uIU/mL (0.358-3.740)
[2024-01-09] MEDS: Magnesium Sulfate 2gm IVPB 2 G/50 ML BAG IV ONE (08:32)
[2024-01-09] MEDS: CEFTRIAXONE 1,000 MG in NA CHLORIDE 0.9% 50 ML IVPB SCH (08:36)
--- NOTE | 2024-01-09 11:12 | P.PN ---
Date of Service: 01/09/24 Subjective: Still complaining of fever/chills Worsening mid to low back pain ROS: 10 point ROS as noted above, otherwise negative Physical exam GEN: Alert, oriented, NAD HEENT: Normal conjunctiva, sclera anicteric CV: Regular rate and rhythm, no edema Pulm: Nonlabored respirations on room air ABD: Soft, nontender, nondistended MSK: No joint tenderness positive CVA tenderness worse on the left Integumentary: No rashes Neuro: Normal speech, normal affect Vitals reviewed Assessment: Sepsis secondary to UTI Diabetes mellitus type 7xyr-yberpiv-nbsrbutle hyperglycemia Hypertension Hyperlipidemia Plan: Sepsis secondary to UTI Patient recently had 2 sets of blood cultures obtained during a previous ED visit on 01/07 Had 2 sets of repeat blood cultures obtained during a later visit on 01/07 First set of blood cultures from initial visit with 1 out of 4 bottles positive for gram-negative rods Urine culture pending with preliminarily 4+ gram-negative rods Still with fever/chills, now with worsening mid to low back pain and positive CVA tenderness Continue Rocephin, await cultures/sensitivities Diabetes mellitus type 2thk-qchfyjt-lrohperfw hyperglycemia ACHS Accu-Chek, sliding scale insulin A1c pending at this time Reports she was started on insulin but cannot afford it so takes metformin/glipizide at home Hypertension Hyperlipidemia Continue home medications DVT PPX: Left Code status: Full Dispo: 2-3 days Time Spent Managing Pts Care (In Minutes): 35 <Angel Luis Drew - Last Filed: 01/09/24 11:12> DOS (01/09/24) Patient seen and examined on rounds this morning with SUPERVISOR BUILDING MAINTENANCE Viki. I performed a substantial part of the MDM during this patient's care today as noted above in the plan of care. I agree with plan of care as noted above with the following additions / corrections: abd nontender, lungs CTAB; +L CVA tenderness - mild GNR bacteremia; culture pending <Teja Ocampo - Last Filed: 01/10/24 22:29>
[2024-01-09] MEDS: ENOXAPARIN 40 MG/0.4 ML SQ SCH (12:31)
[2024-01-09] MEDS: POTASSIUM CL SA 10 MEQ TAB PO ONE (12:31)
[2024-01-09] MEDS: METFORMIN HCL 500 MG TAB PO SCH (17:55)
[2024-01-09] MEDS: MORPHINE 2 MG/ML SYR IV PRN (20:54)
[2024-01-09] MEDS: DULOXETINE 30 MG CAP PO SCH (20:54)
[2024-01-09] MEDS: GABAPENTIN 300 MG CAP PO SCH (20:54)
[2024-01-09] MEDS: METOPROLOL TAR 50 MG TAB PO SCH (20:54)
[2024-01-09] MEDS: GLIPIZIDE S.A. 5 MG TAB PO SCH (21:17)
[2024-01-10 05:59] LABS: Absolute Lymphocytes (CBC) 0.7 K/uL (0.7-4.9); Absolute Monocytes 0.2 K/uL (0.1-1.3); Absolute Neutrophil 2.3 K/uL (1.8-8.0); Basophils % 0.7 % (0-1.3); Eosinophils % 0.5 % (0-4.4); Hematocrit 27.9 % (36.0-45.0); Hemoglobin 9.2 g/dL (12.0-15.0); Lymphocytes % 20.6 % (15.3-44.8); MCHC 32.8 g/dL (32.0-36.0); MCV 76.1 fL (80-100); MPV 8.5 fL (7.6-11.3); Monocytes % 7.6 % (3.3-12.3); Neutrophils % 70.6 % (41.7-73.7); Nucleated Red Blood Cells % 0.2 % (0-0); Platelets 177 thou/uL (152-406); RBC Red Blood Cell Count 3.66 M/uL (3.86-4.86); Red Cell Distribution Width 16.7 % (12.1-15.2)
[2024-01-10 06:14] LABS: Albumin 2.4 g/dL (3.4-5.0); Albumin/Globulin Ratio 0.6 (1.1-1.8); Anion Gap 10.5 mEq/L (5.0-15.0); Bilirubin Total 0.4 mg/dL (0.2-1.0); Globulin 4.2 g/dL (2.3-3.5); Magnesium 1.5 mg/dL (1.6-2.4); Potassium 3.5 mEq/L (3.5-5.1); Protein, Total 6.6 g/dL (6.4-8.2)
[2024-01-10] MEDS: MAGNESIUM SULFATE 1 gm IVPB 1 GM/100 ML BAG IV ONE (06:17)
[2024-01-10] MEDS: POTASSIUM CL SA 10 MEQ TAB PO ONE (06:30)
[2024-01-10] MEDS: Magnesium Sulfate 2gm IVPB 2 G/50 ML BAG IV ONE (06:31)
[2024-01-10] MEDS: FENOFIBRATE 160 MG TAB PO SCH (08:51)
[2024-01-10] MEDS: LOSARTAN POTASSIUM 50 MG TABLET PO SCH (08:51)
[2024-01-10] MEDS: ATORVASTATIN 80 MG TAB PO SCH (08:52)
[2024-01-10] MEDS: ASPIRIN EC 81 MG TAB PO SCH (08:52)
[2024-01-10] MEDS: AMLODIPINE 5 MG TAB PO SCH (08:53)
--- NOTE | 2024-01-10 11:20 | RAD REPORT ---
EXAM DESCRIPTION: [facility] Single View01/10/2024 10:50 am CLINICAL HISTORY: Shortness of breath COMPARISON: 2020 FINDINGS: Calcified granuloma left lung base The lungs appear clear of acute infiltrate. The heart is normal size IMPRESSION: No acute abnormalities displayed
--- NOTE | 2024-01-10 12:41 | P.PN ---
Date of Service: 01/10/24 Subjective: Slightly less back pain Still with intermittent chills/fevers ROS: 10 point ROS as noted above, otherwise negative Physical exam GEN: Alert, oriented, NAD HEENT: Normal conjunctiva, sclera anicteric CV: Regular rate and rhythm, no edema Pulm: Nonlabored respirations on room air ABD: Soft, nontender, mildly distended MSK: No joint tenderness positive CVA tenderness worse on the left Integumentary: No rashes Neuro: Normal speech, normal affect Vitals reviewed Assessment: Sepsis secondary to E. coli ESBL bacteremia/UTI Diabetes mellitus type 0hii-cvrzqod-ppdblmydr hyperglycemia Hypertension Hyperlipidemia Mild abdominal distention Plan: Sepsis secondary to E. coli ESBL bacteremia/UTI First set of blood cultures from previous ED visit on 01/07 2 out of 4 bottles positive for ESBL E. coli Urine culture from same day positive for ESBL E. coli Meropenem started 01/09 ID consulted Diabetes mellitus type 1led-kkexzta-mpxnddeml hyperglycemia ACHS Accu-Chek, sliding scale insulin A1c pending at this time Reports she was started on insulin but cannot afford it so takes metformin/glipizide at home Hypertension Hyperlipidemia Continue home medications Mild abdominal distention Reports feeling bloated/constipated Last bowel movement 01/08 Takes daily stool softener at home Started as needed simethicone, daily docusate as needed DVT PPX: Left Code status: Full Dispo: 2-3 days Time Spent Managing Pts Care (In Minutes): 35
[2024-01-10] MEDS: Meropenem 1,000 MG in NA CHLORIDE 0.9% 100 ML IV SCH (13:07)
[2024-01-10] MEDS: DOCUSATE NA 100 MG CAP PO PRN (13:07)
[2024-01-10] MEDS: SIMETHICONE 80 MG CHEWABLE TAB PO PRN (13:07)
[2024-01-11 03:50] LABS: Absolute Eosinophils 0.1 K/uL (0-0.5); Absolute Lymphocytes (CBC) 0.9 K/uL (0.7-4.9); Absolute Monocytes 0.4 K/uL (0.1-1.3); Absolute Neutrophil 2.6 K/uL (1.8-8.0); Basophils % 0.7 % (0-1.3); Eosinophils % 1.7 % (0-4.4); Hematocrit 26.1 % (36.0-45.0); Hemoglobin 8.4 g/dL (12.0-15.0); Lymphocytes % 22.4 % (15.3-44.8); MCH 24.6 pg (27.0-35.0); MCHC 32.3 g/dL (32.0-36.0); MCV 76.2 fL (80-100); MPV 8.6 fL (7.6-11.3); Neutrophils % 64.2 % (41.7-73.7); Platelets 171 thou/uL (152-406); RBC Red Blood Cell Count 3.43 M/uL (3.86-4.86); Red Cell Distribution Width 16.5 % (12.1-15.2)
[2024-01-11 03:58] LABS: Albumin 2.3 g/dL (3.4-5.0); Albumin/Globulin Ratio 0.5 (1.1-1.8); Anion Gap 8.5 mEq/L (5.0-15.0); Bilirubin Total 0.5 mg/dL (0.2-1.0); Globulin 4.3 g/dL (2.3-3.5); Magnesium 1.9 mg/dL (1.6-2.4); Potassium 3.5 mEq/L (3.5-5.1); Protein, Total 6.6 g/dL (6.4-8.2)
--- NOTE | 2024-01-11 09:26 | P.CNS ---
Date of Consult: 01/11/24 Reason for Consult: ESBL bacteremia Chief Complaint: Sepsis, UTI History of Present Illness: 48 yo F with a PMH of diabetes mellitus, hypertension, hysterectomy and bladder lift who presented to the ED with complaints of fever, chills and dysuria. Found to have E.coli ESBL bacteremia secondary to urinary tract infection. Infectious disease was consulted. Allergies No Known Allergies Allergy (Verified 01/10/17 04:47) Home medications list reviewed: Yes Home Medications: Amlodipine [Norvasc] 5 mg PO DAILY 01/10/17 Gabapentin [Gralise] 300 mg PO BID 01/10/17 Glipizide [Glipizide ER] 10 mg PO BID 01/10/17 Metformin HCl [Glucophage] 1,000 mg PO BID 01/10/17 Metoprolol Tartrate 50 mg PO BID 01/10/17 Aspirin [Aspirin EC] 81 mg PO DAILY 01/08/24 Atorvastatin Calcium [Lipitor] 80 mg PO DAILY 01/08/24 Duloxetine HCl 60 mg PO BEDTIME 01/08/24 Fenofibrate [Tricor*] 145 mg PO DAILY 01/08/24 Liraglutide [Victoza 2-Raj] 0.6 mg SQ DAILY 01/08/24 Losartan Potassium [Cozaar*] 50 mg PO DAILY 01/08/24 - Past Medical/Surgical History Diabetic: Yes -: Hypertension -: Diabetes -: vertigo -: non-hepatitis a, b or c -: D & C -: Mass on the left side Thyroid biopsy Psychosocial/ Personal History: 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, 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 with her son - Family History Father Medical History: Hypertension Mother Medical History: Hypertension, Diabetes, Stroke, Liver disease - Social History Smoking Status: Current every day smoker Alcohol use: No CD- Drugs: No Caffeine use: Yes Place of Residence: Home Review of Systems General: Fever, Chills, Weakness Genitourinary: Frequency Physical Examination Temp Pulse Resp BP Pulse Ox 97.8 F 82 16 123/64 97 01/11/24 08:00 01/11/24 08:00 01/11/24 08:00 01/11/24 08:00 01/11/24 08:00 General: Alert, In no apparent distress, Oriented x3 HEENT: Atraumatic, Normocephalic Respiratory: Clear to auscultation bilaterally, Normal air movement Cardiovascular: No edema, Regular rate/rhythm Gastrointestinal: Normal bowel sounds, Soft and benign Integumentary: No rashes Neurological: Normal speech Laboratory Data - Reviewed Microbiology Data - Reviewed Imagings Data: - Reviewed Conclusions/Impression: Problem List Sepsis secondary to E.coli Bacteremia / Urinary Tract Infection Diabetes mellitus type II Hypertension Hyperlipidemia Sepsis secondary to E.coli ESBL Bacteremia / Urinary Tract Infection - Blood cultures 01/07: Escherichia coli ESBL - Urine culture 01/07: Escherichia coli ESBL - On Meropenem (started 01/09) - CT abdomen pelvis 01/07: " Mild bladder wall thickening may indicate inflammation. Mild splenomegaly" - Fever on 01/10 of 101.1 F Recommendations - GNR bacteremia/UTI: Continue Meropenem IV x 10 days (01/09- 01/19) - Monitor CBC, BMP, fever trends - Continue supportive care - pending midline/picc line placement to continue antibiotic therapy at home with home health - hydration. Case discussed with Lisa Mendoza
--- NOTE | 2024-01-11 14:35 | P.PN ---
Date of Service: 01/11/24 Subjective: Some burning on urination and pelvic pressure Reports feeling some better ROS: 10 point ROS as noted above, otherwise negative Physical exam GEN: AAOx3, no acute distress HEENT: Normal conjunctiva, sclera anicteric CV: S1-S2 present, regular rate and rhythm, no murmur noted Pulm: Nonlabored respirations on room air ABD: Soft and benign to palpation, ND NT, active bowel sounds MSK: No joint tenderness positive CVA tenderness worse on the left Integumentary: No rashes Neuro: Normal speech, normal affect Vitals reviewed Assessment: Sepsis secondary to E. coli ESBL bacteremia/UTI Diabetes mellitus type 5cqu-llxsblo-ertdyhjfz hyperglycemia Hypertension Hyperlipidemia Mild abdominal distention Plan: Sepsis secondary to E. coli ESBL bacteremia/UTI First set of blood cultures from previous ED visit on 01/07 2 out of 4 bottles positive for ESBL E. coli Urine culture from same day positive for ESBL E. coli Meropenem started 01/09 for ten days, end date 01/19/24 ID consulted- recommend Merrem for 10 days Diabetes mellitus type 5vlw-tenzprm-hbndlyyfj hyperglycemia ACHS Accu-Chek, sliding scale insulin A1c pending at this time Reports she was started on insulin but cannot afford it so takes metformin/glipizide at home Hypertension Hyperlipidemia Continue home medications Mild abdominal distention Reported feeling bloated/constipated 01/09 Last bowel movement 01/08 Takes daily stool softener at home Started as needed simethicone, daily docusate as needed DVT PPX: Left Code status: Full Dispo: 2-3 days
[2024-01-12 04:18] LABS: Anion Gap 8.5 mEq/L (5.0-15.0); Potassium 3.5 mEq/L (3.5-5.1)
[2024-01-12 05:49] VITALS: BMI 35.5
[2024-01-12] MEDS: POTASSIUM CL SA 10 MEQ TAB PO ONE (08:42)
[2024-01-12 09:32] LABS: Absolute Eosinophils 0.1 K/uL (0-0.5); Absolute Lymphocytes (CBC) 1.1 K/uL (0.7-4.9); Absolute Monocytes 0.3 K/uL (0.1-1.3); Absolute Neutrophil 1.9 K/uL (1.8-8.0); Basophils % 1.1 % (0-1.3); Eosinophils % 3.6 % (0-4.4); Hematocrit 27.6 % (36.0-45.0); Lymphocytes % 30.5 % (15.3-44.8); MCH 24.6 pg (27.0-35.0); MCHC 32.7 g/dL (32.0-36.0); MCV 75.3 fL (80-100); MPV 8.2 fL (7.6-11.3); Monocytes % 8.9 % (3.3-12.3); Neutrophils % 55.9 % (41.7-73.7); Nucleated Red Blood Cells % 0.1 % (0-0); Platelets 213 thou/uL (152-406); RBC Red Blood Cell Count 3.66 M/uL (3.86-4.86); Red Cell Distribution Width 16.3 % (12.1-15.2)
--- NOTE | 2024-01-12 09:39 | P.PN ---
Infectious Disease Progress Note Chief Complaint: Sepsis, UTI Subjective: In no apparent distress. + fever + constipation Still with intermittent fevers up to 101.3 F this morning; however patient reports feeling better today than she did yesterday. Physical Examination Temp Pulse Resp BP Pulse Ox 101.1 F H 68 20 119/63 95 01/12/24 07:44 01/12/24 08:43 01/12/24 07:44 01/12/24 08:43 01/12/24 07:44 General: Alert, In no apparent distress, Oriented x3 HEENT: Atraumatic, Normocephalic Respiratory: Clear to auscultation bilaterally, Normal air movement Cardiovascular: No edema, Regular rate/rhythm Gastrointestinal: Normal bowel sounds, Soft and benign Integumentary: No rashes Neurological: Normal speech Laboratory Data - Reviewed Microbiology Data - Reviewed Imagings Data: - Reviewed Assessment and Plan Problem List Sepsis secondary to E.coli Bacteremia / Urinary Tract Infection Diabetes mellitus type II Hypertension Hyperlipidemia Sepsis secondary to E.coli ESBL Bacteremia / Urinary Tract Infection - Blood cultures 01/07: Escherichia coli ESBL - Urine culture 01/07: Escherichia coli ESBL - On Meropenem (01/09-) - CT abdomen pelvis 01/07: " Mild bladder wall thickening may indicate inflammation. Mild splenomegaly" - Persistent fevers. Repeat CT abdomen/pelvis obtained to rule out renal abscess. No renal abscess reported on repeat CT. Recommendations - GNR bacteremia/UTI: Continue Meropenem IV x 10-14 days (started 01/09-) - Monitor CBC, BMP, fever trends - Continue supportive care - pending midline/picc line placement to continue antibiotic therapy at home with home health - hydration. Case discussed with Lisa Mendoza
[2024-01-12 09:47] LABS: Anion Gap 6.6 mEq/L (5.0-15.0); Potassium 3.6 mEq/L (3.5-5.1)
[2024-01-12] MEDS: Mupirocin NASAL 2 APPL/1 GM TUBE NAS SCH (12:42)
--- NOTE | 2024-01-12 12:45 | RAD REPORT ---
EXAM DESCRIPTION: CTAbdomen Pelvis W Contrast - 01/12/2024 12:39 pm CLINICAL HISTORY: Abdominal pain. Febrile COMPARISON: Abdomen Pelvis W Contrast dated 01/08/2024; Abdomen Pelvis W Contrast dated 11/23/2018 TECHNIQUE: Biphasic CT imaging of the abdomen and pelvis was performed with 100 ml non-ionic IV cont rast. All CT scans are performed using dose optimization technique as appropriate and may include automated exposure control or mA/KV adjustment according to patient size. FINDINGS: Small bilateral pleural effusions. Mild diffuse fatty liver. No focal liver lesion or biliary dilatation. The spleen, pancreas, adrenal glands and kidneys are within normal limits. No bowel obstruction, free air, free fluid or abscess. Small fat containing umbilical hernia. The shailesh endix is normal. Mild stool retention and diverticulosis in the rectosigmoid colon. No evidence of si gnificant lymphadenopathy. No suspicious bony findings. IMPRESSION: Mild fatty liver is seen. Small bilateral pleural effusions.
--- NOTE | 2024-01-12 17:03 | P.PN ---
Date of Service: 01/12/24 Subjective: In the halls this morning, febrile during the day No new complaints ROS: 10 point ROS as noted above, otherwise negative Physical exam GEN: NAD, alert and oriented x 3, febrile HEENT: Normal conjunctiva, sclera anicteric CV: RRR, S1-S2 present, no murmur noted Pulm: Nonlabored respirations on room air ABD: Soft and benign to palpation, distended, active bowel sounds MSK: No joint tenderness positive CVA tenderness worse on the left Integumentary: No rashes Neuro: Normal speech, normal affect Vitals reviewed Assessment: Sepsis secondary to E. coli ESBL bacteremia/UTI Febrile Diabetes mellitus type 7pqe-gthlllq-bnoeentcf hyperglycemia Hypertension Hyperlipidemia Mild abdominal distention Diverticulosis Plan: Sepsis secondary to E. coli ESBL bacteremia/UTI Febrile -CT abdomen pelvis reports fatty liver and small bilateral pleural effusions, mild stool retention and diverticulosis in the rectosigmoid colon -First set of blood cultures from previous ED visit on 01/07 2 out of 4 bottles positive for ESBL E. coli -Urine culture from same day positive for ESBL E. 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 will follow labs for home antibiotics -tylenol for fever Diabetes mellitus type 5zmm-zooxrfv-bzcvguzzn hyperglycemia -ACHS Accu-Chek, sliding scale insulin A1c pending at this time -Reports she was started on insulin but cannot afford it so takes metformin/glipizide at home -A1C 11.2 Hypertension Hyperlipidemia -Continue home medications Mild abdominal distention Diverticulosis -CT abdomen pelvis reports mild stool retention and diverticulosis in the rectosigmoid colon -Reported feeling bloated/constipated 01/09 -Last bowel movement 01/11- bloody diarrhea characteristic -H/H 06/23.6, will monitor closely -Takes daily stool softener at home -Started as needed simethicone, daily docusate as needed DVT PPX: Left Code status: Full Dispo: 2-3 days <Maine Jones - Last Filed: 01/12/24 16:51> Patient seen and examined. She keeps experiencing intermittent fever. Urine culture and blood cultures grew ESBL E. coli. Patient is on appropriate antibiotics but states there is intermittent fever. CT abdominal pelvis done to assess for renal abscess is negative. Continue IV meropenem Infectious disease to follow. Planning outpatient IV Invanz. <micki daniel - Last Filed: 01/12/24 17:31>
[2024-01-12] MEDS: LACTOBACILLUS/ACIDOPHILUS TAB PO SCH (18:28)
[2024-01-13 04:01] LABS: Absolute Eosinophils 0.2 K/uL (0-0.5); Absolute Lymphocytes (CBC) 1.3 K/uL (0.7-4.9); Absolute Monocytes 0.6 K/uL (0.1-1.3); Absolute Neutrophil 2.6 K/uL (1.8-8.0); Eosinophils % 3.8 % (0-4.4); Hematocrit 27.8 % (36.0-45.0); Hemoglobin 9.1 g/dL (12.0-15.0); Lymphocytes % 27.8 % (15.3-44.8); MCHC 32.9 g/dL (32.0-36.0); MPV 8.5 fL (7.6-11.3); Monocytes % 12.5 % (3.3-12.3); Neutrophils % 54.9 % (41.7-73.7); Nucleated Red Blood Cells % 0.1 % (0-0); Platelets 220 thou/uL (152-406); RBC Red Blood Cell Count 3.66 M/uL (3.86-4.86); Red Cell Distribution Width 16.8 % (12.1-15.2)
[2024-01-13 04:05] LABS: Anion Gap 9.5 mEq/L (5.0-15.0); Potassium 4.5 mEq/L (3.5-5.1)
--- NOTE | 2024-01-13 06:35 | P.PN ---
Date of Service: 01/13/24 Subjective: Febrile overnight ROS: 10 point ROS as noted above, otherwise negative Physical exam GEN: NAD, alert and oriented x 3, febrile HEENT: Normal conjunctiva, sclera anicteric CV: RRR, S1-S2 present, no murmur noted Pulm: Nonlabored respirations on room air ABD: Soft and benign to palpation, distended, active bowel sounds MSK: No joint tenderness positive CVA tenderness worse on the left Integumentary: No rashes Neuro: Normal speech, normal affect Vitals reviewed Assessment: Sepsis secondary to E. coli ESBL bacteremia/UTI Febrile Diabetes mellitus type 0gxw-vohnrdh-cpivtasdw hyperglycemia Hypertension Hyperlipidemia Mild abdominal distention Diverticulosis Plan: Sepsis secondary to E. coli ESBL bacteremia/UTI Febrile -CT abdomen pelvis reports fatty liver and small bilateral pleural effusions, mild stool retention and diverticulosis in the rectosigmoid colon -First set of blood cultures from previous ED visit on 01/07 2 out of 4 bottles positive for ESBL E. coli -Urine culture from same day positive for ESBL E. 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 will follow labs for home antibiotics -tylenol for fever Diabetes mellitus type 8pey-rdffnag-arzhtfbkv hyperglycemia -ACHS Accu-Chek, sliding scale insulin A1c pending at this time -Reports she was started on insulin but cannot afford it so takes metformin/glipizide at home -A1C 11.2 Hypertension Hyperlipidemia -Continue home medications Mild abdominal distention Diverticulosis -CT abdomen pelvis reports mild stool retention and diverticulosis in the rectosigmoid colon -Reported feeling bloated/constipated 01/09 -Last bowel movement 01/11- bloody diarrhea characteristic -H/H 06/23.6, will monitor closely -Takes daily stool softener at home -Started as needed simethicone, daily docusate as needed DVT PPX: Left Code status: Full Dispo: 2-3 days
[2024-01-13 08:30] VITALS: TEMP 97.5
--- NOTE | 2024-01-13 09:01 | P.PN ---
Infectious Disease Progress Note Chief Complaint: Sepsis, UTI Subjective: Improving. In no apparent distress. States she is feeling much better. No fevers or chills no nausea, vomiting, abdominal pain or diarrhea. Physical Examination Temp Pulse Resp BP Pulse Ox 97.5 F 78 16 141/71 H 98 01/13/24 07:59 01/13/24 08:34 01/13/24 07:59 01/13/24 08:34 01/13/24 07:59 General: Alert, In no apparent distress, Oriented x3 HEENT: Atraumatic, Normocephalic. corrective lenses. Respiratory: Clear to auscultation bilaterally. Normal air movement. Cardiovascular: No edema, Regular rate/rhythm Gastrointestinal: Normal bowel sounds, Soft and benign MSK/Integumentary: No rashes. normal strength Neurological: Normal speech, normal tone, normal affect. Laboratory Data - Reviewed Microbiology Data - Reviewed Imagings Data: - Reviewed Assessment and Plan Problem List Sepsis secondary to E.coli Bacteremia / Urinary Tract Infection Diabetes mellitus type II Hypertension Hyperlipidemia Sepsis secondary to E.coli ESBL Bacteremia / Urinary Tract Infection - Blood cultures 01/07: Escherichia coli ESBL - Urine culture 01/07: Escherichia coli ESBL - On Meropenem (01/09-) - CT abdomen pelvis 01/07: " Mild bladder wall thickening may indicate inflammation. Mild splenomegaly" - Persistent fevers. Repeat CT abdomen/pelvis obtained to rule out renal abscess. No renal abscess reported on repeat CT. Recommendations - GNR bacteremia/UTI: Continue Meropenem IV x 10-14 days (started 01/09-) - Monitor CBC, BMP, fever trends - Continue supportive care - follow up with PCP in 1-2 weeks. plan for discharge home with home health to complete remainder of antibiotic co urse via PICC line. CM/SS following. Case discussed with Lisa Mendoza
[2024-01-13 10:12] VITALS: O2SAT 98
[2024-01-13] MEDS: ERTAPENEM NA 1 GM in NA CHLORIDE 0.9% 100 ML IVPB ONE (11:59)
[2024-01-13 12:32] VITALS: BP 124/64
--- NOTE | 2024-01-13 14:16 | P.DS ---
Admission Date: 01/08/24 Discharge Date: 01/15/24 Disposition: DC HOME/HOME HEALTH CARE Discharge Condition: FAIR Reason for Admission: Sepsis, UTI Brief History of Present Illness: Diagnosis Sepsis secondary to E. coli ESBL bacteremia/UTI Febrile Diabetes mellitus type 3rvt-nvfmkaz-gcvjnjcml hyperglycemia Hypertension Hyperlipidemia Mild abdominal distention Diverticulosis HPI 01/08/24 Kayla Vincent is a 48-year-old female presents emergency department with chief complaint of nausea, subjective fever, chills, dysuria for the past 24 hours. She was evaluated in the emergency department her labs were significant for hyperglycemia with glucose of 352 hemoglobin 10.5 hematocrit 32.9 SIRS criteria present including tachycardia, tachypnea and source of infection confirmed with urinary tract infection meeting criteria for sepsis. Blood cultures were obtained lactate was 1.8 CT abdomen pelvis IV contrast was performed which showed bladder wall thickening consistent with cystitis. Patient will be admitted for further evaluation and management of sepsis, UTI. Hospital Course: Kayla Vincent is a pleasant 48 year old female with a past medical history significant for hypertension, hyperlipidemia, diverticulosis, and diabetes mellitusNIDDM who was admitted to the [facility] on 01/08/24 for sepsis with UTI. Kayla Vincent presented to the ED with dysuria, Nausea, and chills. Urine and blood cultures found ESBL E coli and merrem was started on 01/09. At discharge, will continue with Invanz for the duration of IV antibiotics, end date 01/20/24. Please follow up with your PCP who will also be following along with your labs and IV antibiotic dosing. She is ambulating independently, tolerating p.o. diet, urinating without difficulty, and urinary discomfort has improved. She is hemodynamically stable for discharge On 01/13/24, Kayla was seen on morning rounds and deemed medically stable for discharge. Kayla was discharged with instructions to schedule follow-up appointments with PCP . Kayla was provided prescriptions for Lactinex. The patient was given the opportunity to ask questions and reported no further questions. Furthermore, all questions were answered to the best of my ability. A copy of this discharge summary will be sent to the above providers to facilitate continuity of care. Physical exam GEN: AAOx3, NAD, afebrile HEENT: Normal conjunctiva, sclera anicteric CV: Regular rate and rhythm, S1-S2 present, no murmur noted Pulm: Nonlabored respirations on room air ABD: Soft and benign to palpation, distended (obese), active bowel sounds MSK: No joint tenderness positive CVA tenderness worse on the left Integumentary: No rashes Neuro: Normal speech, normal affect Vital Signs/Physical Exam: Temp Pulse Resp BP Pulse Ox 97.5 F 79 16 124/64 96 01/13/24 12:00 01/13/24 12:00 01/13/24 12:00 01/13/24 12:00 01/13/24 12:00 Laboratory Data at Discharge: WBC 4.70 thou/uL (4.3-10.9) 01/13/24 03:14 Hgb 9.1 g/dL (12.0-15.0) L 01/13/24 03:14 Hct 27.8 % (36.0-45.0) L 01/13/24 03:14 Plt Count 220 thou/uL (152-406) 01/13/24 03:14 PT 12.6 SECONDS (9.5-12.5) H 01/08/24 12:30 INR 1.15 01/08/24 12:30 APTT 30.5 SECONDS (24.3-36.9) 01/08/24 12:30 Sodium 137 mEq/L (136-145) 01/13/24 03:14 Potassium 4.5 mEq/L (3.5-5.1) D 01/13/24 03:14 BUN 13 mg/dL (7-18) 01/13/24 03:14 Creatinine 0.62 mg/dL (0.55-1.02) 01/13/24 03:14 Glucose 144 mg/dL (74-106) H 01/13/24 03:14 Magnesium 1.9 mg/dL (1.6-2.4) 01/11/24 03:16 Total Bilirubin 0.5 mg/dL (0.2-1.0) 01/11/24 03:16 AST 31 U/L (15-37) 01/11/24 03:16 ALT 31 U/L (13-56) 01/11/24 03:16 Alkaline Phosphatase 52 U/L (45-117) 01/11/24 03:16 Home Medications: Amlodipine [Norvasc*] 5 mg PO DAILY 01/10/17 Gabapentin [Gralise] 300 mg PO BID 01/10/17 Glipizide [Glipizide ER] 10 mg PO BID 01/10/17 Metformin HCl [Glucophage] 1,000 mg PO BID 01/10/17 Metoprolol Tartrate 50 mg PO BID 01/10/17 Aspirin [Aspirin EC] 81 mg PO DAILY 01/08/24 Atorvastatin Calcium [Lipitor] 80 mg PO DAILY 01/08/24 Duloxetine HCl 60 mg PO BEDTIME 01/08/24 Fenofibrate [Tricor*] 145 mg PO DAILY 01/08/24 Liraglutide [Victoza 2-Raj] 0.6 mg SQ DAILY 01/08/24 Losartan Potassium [Cozaar*] 50 mg PO DAILY 01/08/24 Acidophilus/Bulgaricus [Lactinex Packet] 1 each PO DAILY 7 Days #7 packet 01/13/24 New Medications: Acidophilus/Bulgaricus [Lactinex Packet] 1 each PO DAILY 7 Days #7 packet Physician Discharge Instructions: Kayla Vincent presented to the ED with dysuria, Nausea, and chills. Urine and blood cultures found ESBL E coli and merrem was started on 01/09. At discharge, will continue with Invanz for the duration of IV antibiotics, end date 01/20/24. Please follow up with your PCP who will also be following along with your labs and IV antibiotic dosing. 1. Call and follow up with your PCP in one week for continued care and medications. 2. Continue with diabetic diet 3. No activity restrictions 4. Return to ED if symptoms worsen 5. Continue with Invanz IV antibiotics New medication Lactinex (probiotic) daily x seven days Followup: Elysia Rodriguez NP [Primary Care Provider] -
== END 2024-01-13 14:50 | disposition home health service (06) | DRG 872 ==
LOC: ER 11:36 → ERHOLD 15:33 → 2ND 23:12
PROVIDERS: ADMIT Hospitalist; ATTEND Internal Medicine
PROC: 02HV33Z Insertion of Infusion Device into Superior Vena Cava, Percutaneous Approach (ICD-10-PCS; principal; 2024-01-12)
DX: A41.51 Sepsis due to Escherichia coli [E. coli] (principal); N39.0 Urinary tract infection, site not specified; Z16.12 Extended spectrum beta lactamase (ESBL) resistance; I10 Essential (primary) hypertension; E78.5 Hyperlipidemia, unspecified; K59.00 Constipation, unspecified; E11.65 Type 2 diabetes mellitus with hyperglycemia; E11.40 Type 2 diabetes mellitus with diabetic neuropathy, unspecified; K57.30 Diverticulosis of large intestine without perforation or abscess without bleeding; F17.200 Nicotine dependence, unspecified, uncomplicated; Z79.82 Long term (current) use of aspirin; Z79.84 Long term (current) use of oral hypoglycemic drugs; Z90.710 Acquired absence of both cervix and uterus; Z79.899 Other long term (current) drug therapy
CPT/HCPCS: 36415; 71045; 74177; 80048; 80053; 82947; 83036; 83605; 83735; 84439; 84443; 85025; 85610; 85730; 87040; 93005; 96361; 96365; 96375; 99285; J0696; J1335; J1650; J1815; J2185; J2270; J2405; J3475; J7030; Q9967